=== PATIENT | male | born 1965 | race African-American/Black ===

== ENCOUNTER 2019-08-01 12:01 | Inpatient (IN) | payer OTHER ==
[~2019-08-01] VITALS: Ht 180.3 cm; Wt 137.6 kg
--- NOTE | 2019-08-01 12:20 | PHYS DOC ---
Adult General Chief Complaint Chief Complaint: ABDOMINAL PAIN HPI HPI Patient is a 53 year old Male who presents with nose last night he has increase abdominal fullness to the point where he is having shortness of breath that he states he notes last night. He states his last bowel movement was an hour ago and it was normal for him. He states that he's had ascites before and had to have his abdomen draining. He states he has a history of liver disease and hypertension. States he normally goes to the [facility]. Patient states he also has bilateral lower leg swelling that is new when he noticed this yesterday. He states his overall discomfort as a 10 out of 10 but no pain. He states that he has a left-sided chest pain that is sharp and it comes and goes but none at this time. Patient denies nausea, vomiting, abdominal pain, diarrhea, constipation, alcoholism, drug use, dizziness, headache, visual changes, weakness, numbness or tingling. Review of Systems Review of Systems Respiratory: Denies cough. +shortness of breath [] Cardiovascular: Left chest intermittent GI: abdominal swelling, denies nausea, vomiting, bloody stools or diarrhea [] : Denies dysuria or hematuria [] Musculoskeletal: Pedal edema. Denies back pain or joint pain [] All other systems were reviewed and found to be within normal limits, except as documented in this note. Current Medications Current Medications Current Medications Medications (Trade) Dose Ordered Sig/Obed Start Time Stop Time Status Last Admin Dose Admin Info (CONTRAST GIVEN -- Rx MONITORING) 1 each PRN DAILY PRN 08/01/19 13:30 08/03/19 13:29 Iohexol (Omnipaque 300 Mg/ml) 75 ml 1X ONCE 08/01/19 13:15 08/01/19 13:16 DC 08/01/19 13:27 75 ML Ondansetron HCl (Zofran) 4 mg 1X ONCE 08/01/19 13:30 08/01/19 13:31 DC 08/01/19 14:01 4 MG Potassium Chloride (Klor-Con) 40 meq 1X ONCE 08/01/19 13:30 08/01/19 13:31 DC 08/01/19 14:01 40 MEQ Allergies Allergies Allergies Coded Allergies Type Severity Reaction Last Updated Verified No Known Drug Allergies 08/01/19 No Physical Exam Physical Exam Constitutional: Well developed, well nourished, no acute distress, non-toxic appearance. [] HENT: Normocephalic, atraumatic, bilateral external ears normal, oropharynx moist, no oral exudates, nose normal. [] Eyes: PERRLA, EOMI, conjunctiva normal, no discharge. [] Neck: Normal range of motion, no tenderness, supple, no stridor. [] Cardiovascular:Heart rate, Tachy regular rhythm, no murmur [] Lungs & Thorax: Bilateral upper breath sounds clear and lower diminished to auscultation [] Abdomen: Bowel sounds normal, large, rounded and tight, no tenderness, no masses, no pulsatile masses. [] Skin: Warm, dry, no erythema, no rash. [] Back: No tenderness, no CVA tenderness. [] Extremities: No tenderness, no cyanosis, no clubbing, ROM intact, Bilateral pedal 2+ non pitting edema. [] Neurologic: Alert and oriented X 3, normal motor function, normal sensory function, no focal deficits noted. [] Psychologic: Affect normal, judgement normal, mood normal. [] Current Patient Data Vital Signs Vital Signs Date Time Temp Pulse Resp B/P (MAP) Pulse Ox O2 Delivery O2 Flow Rate FiO2 08/01/19 12:01 98.1 120 24 156/64 (94) 97 Room Air 98.1 Lab Values Laboratory Tests Test 08/01/19 11:55 08/01/19 12:04 Urine Collection Type Unknown Urine Color Yellow Urine Clarity Clear Urine pH 7.0 Urine Specific [place] 1.010 Urine Protein Negative mg/dL (NEG-TRACE) Urine Glucose (UA) Negative mg/dL (NEG) Urine Ketones (Stick) Negative mg/dL (NEG) Urine Blood Negative (NEG) Urine Nitrite Negative (NEG) Urine Bilirubin Negative (NEG) Urine Urobilinogen Dipstick 1.0 mg/dL (0.2 mg/dL) Urine Leukocyte Esterase Negative (NEG) Urine RBC 3-5 /HPF (0-2) Urine WBC 0 /HPF (0-4) Urine Squamous Epithelial Cells Mod /LPF Urine Bacteria 0 /HPF (0-FEW) Urine Opiates Screen Neg (NEG) Urine Methadone Screen Neg (NEG) Urine Barbiturates Neg (NEG) Urine Phencyclidine Screen Neg (NEG) Urine Amphetamine/Methamphetamine Neg (NEG) Urine Benzodiazepines Screen Neg (NEG) Urine Cocaine Screen Neg (NEG) Urine Cannabinoids Screen Neg (NEG) Urine Ethyl Alcohol Neg (NEG) White Blood Count 7.1 x10^3/uL (4.0-11.0) Red Blood Count 2.58 x10^6/uL (4.30-5.70) L Hemoglobin 8.4 g/dL (13.0-17.5) L Hematocrit 25.0 % (39.0-53.0) L Mean Corpuscular Volume 97 fL (79-100) Mean Corpuscular Hemoglobin 33 pg (25-35) Mean Corpuscular Hemoglobin Concent 34 g/dL (31-37) Red Cell Distribution Width 17.3 % (11.5-14.5) H Platelet Count 109 x10^3/uL (140-400) L Neutrophils (%) (Auto) 60 % (31-73) Lymphocytes (%) (Auto) 18 % (24-48) L Monocytes (%) (Auto) 18 % (0-9) H Eosinophils (%) (Auto) 2 % (0-3) Basophils (%) (Auto) 1 % (0-3) Neutrophils # (Auto) 4.3 x10^3/uL (1.8-7.7) Lymphocytes # (Auto) 1.3 x10^3/uL (1.0-4.8) Monocytes # (Auto) 1.3 x10^3/uL (0.0-1.1) H Eosinophils # (Auto) 0.2 x10^3/uL (0.0-0.7) Basophils # (Auto) 0.1 x10^3/uL (0.0-0.2) Platelet Estimate Pending Prothrombin Time 23.4 SEC (11.7-14.0) H Prothrombin Time INR 2.1 (0.8-1.1) H Sodium Level 133 mmol/L (136-145) L Potassium Level 3.0 mmol/L (3.5-5.1) L Chloride Level 97 mmol/L (98-107) L Carbon Dioxide Level 28 mmol/L (21-32) Anion Gap 8 (6-14) Blood Urea Nitrogen 7 mg/dL (8-26) L Creatinine 1.4 mg/dL (0.7-1.3) H Estimated GFR (Cockcroft-Gault) 53.0 BUN/Creatinine Ratio 5 (6-20) L Glucose Level 116 mg/dL (70-99) H Calcium Level 7.9 mg/dL (8.5-10.1) L Total Bilirubin 2.0 mg/dL (0.2-1.0) H Aspartate Amino Transferase (AST) 117 U/L (15-37) H Alanine Aminotransferase (ALT) 44 U/L (16-63) Alkaline Phosphatase 244 U/L (46-116) H Troponin I Quantitative < 0.017 ng/mL (0.000-0.055) ZY-[id number]-Type Natriuretic Peptide 95 pg/mL (0-124) Total Protein 8.1 g/dL (6.4-8.2) Albumin 2.3 g/dL (3.4-5.0) L Albumin/Globulin Ratio 0.4 (1.0-1.7) L Lipase 202 U/L (73-393) Ethyl Alcohol Level < 10 mg/dL (0-10) Laboratory Tests 08/01/19 12:04 Laboratory Tests 08/01/19 12:04 EKG EKG Sinus Tachy and no STEMI[] Interpretation Time: [address] Villaseñor Radiology/Procedures Radiology/Procedures [] Impressions: [address] [id number] IMAGING REPORT Signed PATIENT: KERRY GILMORE ACCOUNT: [id number] : 1965 LOCATION: ER AGE: 53 SEX: M EXAM STATUS: PRE ER ORD. PHYSICIAN: ASHA MOTLEY APRN REASON: soa PROCEDURE: PORTABLE CHEST 1V EXAM: Chest, single view. HISTORY: Shortness of air. COMPARISON: None. FINDINGS: A frontal view of the chest is obtained. There is no infiltrate, pleural effusion or pneumothorax. The heart is normal in size. IMPRESSION: No acute pulmonary finding. Electronically signed by: Gaby Chacko MD (08/01/2019 12:50 PM) [place] [id number] DICTATED and SIGNED BY: GABY CHACKO MD DATE: 08/01/[address] [id number] IMAGING REPORT Signed PATIENT: KERRY GILMORE ACCOUNT: [id number] : 1965 LOCATION: ER AGE: 53 SEX: M EXAM STATUS: PRE ER ORD. PHYSICIAN: ASHA MOTLEY APRN REASON: abdominal swelling, hx liver disease and ascites PROCEDURE: CT ABD PELV W/ IV CONTRST ONLY CT abdomen pelvis with contrast dated 08/01/2019. No comparison available. CLINICAL INDICATION: Abdominal swelling. History of liver disease. TECHNIQUE: Contiguous axial imaging the abdomen and pelvis performed after the administration of 60 cc Omnipaque 300. One or more of the following individualized dose reduction techniques were utilized for this examination: 1. Automated exposure control 2. Adjustment of the mA and/or kV according to patient size 3. Use of iterative reconstruction technique. FINDINGS: Limited images of lung bases are clear. Heart size is upper limits of normal. No pleural or pericardial effusion. Liver is small and nodular in contour with hypertrophy of the left lobe and caudate. There is a tiny hypodensity in the right lobe centrally measuring about 5 mm. Biliary tree is normal in caliber. The gallbladder is surgically absent. Spleen is normal in size. There is a small amount of ascites. Pancreas, adrenal glands and kidneys are unremarkable. No hydronephrosis. Partially opacified GI tract is normal in caliber and contour. There is some mild wall thickening of the right colon. Appendix normal in caliber. No lymphadenopathy. Abdominal aorta normal in caliber. Images of pelvis show nondistended urinary bladder. Prostate gland normal in size. Small amount of free pelvic fluid. No pelvic lymphadenopathy. There are small umbilical and supraumbilical ventral hernias containing ascitic fluid. Bone windows show no acute findings. Multilevel spondylosis. IMPRESSION: 1. No acute abnormality of abdomen or pelvis. Normal appendix. 2. Findings consistent with cirrhosis. There is a small amount of ascites. 3. Tiny hypodensity in the right lobe liver measuring about 5 mm, nonspecific. Correlate with alpha-fetoprotein values. Follow-up biphasic CT or MRI in 6 months to ensure stability. 4. Small ventral hernias containing ascitic fluid. Electronically signed by: Ayush Mann MD (08/01/2019 1:48 PM) [facility] DICTATED and SIGNED BY: AYUSH MANN MD DATE: 08/01/19 1348 Course & Med Decision Making Course & Med Decision Making Lungs are clear to station upper lobes but diminished in lower lobes. Abdomen is large, rounded in tight. No tenderness with palpation. EKG shows sinus tachycardia at 111 and no STEMI. Has bilateral pedal edema and 2+ nonpitting. Speaks in full clear sentences but does sound breathless. Patient whispers when he speaks. PERRLA. Follows all commands. Skin pink warm and dry. CT ABD PELV shows IMPRESSION: 1. No acute abnormality of abdomen or pelvis. Normal appendix. 2. Findings consistent with cirrhosis. There is a small amount of ascites. 3. Tiny hypodensity in the right lobe liver measuring about 5 mm, nonspecific. Correlate with alpha-fetoprotein values. Follow-up biphasic CT or MRI in 6 months to ensure stability. 4. Small ventral hernias containing ascitic fluid. Blood work grossly abnormal. Hypocalcemia and Hypokalemia. I ordered PO Potassium. I have spoken to Dr Garcia, she is aware of lab findings and the Patient admitted to hospitalist Dr. Garcia. Carson Disclaimer Carson Disclaimer This electronic medical record was generated, in whole or in part, using a voice recognition dictation system. The HEART Score for CP Pts HEART Score for Chest Pain: HEART Score for Chest Pain Response (Comments) Value History Slighlty/Non-Suspicious 0 ECG Normal 0 Age >45 - < 65 1 Risk Factors 1 or 2 Risk Factors 1 Troponin < Normal Limit 0 Total 2 Risk Factors: Risk Factors: DM, Current or recent (<one month) smoker, HTN, HLP, family history of CAD, obesity. Risk Scores: Score 0 - 3: 2.5% MACE over next 6 weeks - Discharge Home Score 4 - 6: 20.3% MACE over next 6 weeks - Admit for Clinical Observation Score 7 - 10: 72.7% MACE over next 6 weeks - Early Invasive Strategies Departure Departure Impression: Primary Impression: Ascites Additional Impressions: Shortness of breath Chest pain Disposition: ADMITTED INPATIENT Admitting Physician: HOLGER Condition: STABLE Problem Qualifiers Primary Impression: Ascites Ascites type: other type Qualified Codes: R18.8 - Other ascites Additional Impressions: Chest pain Chest pain type: other chest pain Qualified Codes: R07.89 - Other chest pain ASHA MOTLEY FILM COMPOSER Aug 01, 2019 12:20
[2019-08-01 12:29] LABS: BASO # 0.1 x10^3/uL (0.0-0.2); BASO % 1 % (0-3); EOS # 0.2 x10^3/uL (0.0-0.7); EOS % 2 % (0-3); HEMOGLOBIN 8.4 g/dL (13.0-17.5); LYMPH # 1.3 x10^3/uL (1.0-4.8); LYMPH % 18 % (24-48); MEAN CORPUSCULAR HEMOGLOBIN 33 pg (25-35); MEAN CORPUSCULAR HGB CONC 34 g/dL (31-37); MEAN CORPUSCULAR VOLUME 97 fL (79-100); MONO # 1.3 x10^3/uL (0.0-1.1); MONO % 18 % (0-9); NEUT # 4.3 x10^3/uL (1.8-7.7); NEUT % 60 % (31-73); PLATELET COUNT 109 x10^3/uL (140-400); RED BLOOD COUNT 2.58 x10^6/uL (4.30-5.70); RED CELL DISTRIBUTION WIDTH 17.3 % (11.5-14.5); WHITE BLOOD COUNT 7.1 x10^3/uL (4.0-11.0)
[2019-08-01 12:47] LABS: CALCIUM 7.9 mg/dL (8.5-10.1); CREATININE 1.4 mg/dL (0.7-1.3)
[2019-08-01 12:48] LABS: BILIRUBIN,URINE NEGATIVE (NEG); CLARITY,URINE CLEAR; COLOR,URINE YELLOW; NITRITE,URINE NEGATIVE (NEG); PROTEIN,URINE NEGATIVE (NEG-TRACE)
--- NOTE | 2019-08-01 12:53 | RAD ---
EXAM: Chest, single view. HISTORY: Shortness of air. COMPARISON: None. FINDINGS: A frontal view of the chest is obtained. There is no infiltrate, pleural effusion or pneumothorax. The heart is normal in size. IMPRESSION: No acute pulmonary finding. Electronically signed by: Gaby Sharpe MD (08/01/2019 12:50 PM) [facility]
[2019-08-01 12:54] LABS: ALBUMIN 2.3 g/dL (3.4-5.0); ALBUMIN/GLOBULIN RATIO 0.4 (1.0-1.7); TOTAL PROTEIN 8.1 g/dL (6.4-8.2)
[2019-08-01 13:00] LABS: AMPHETAMINE/METHAMPHETAMINE NEG (NEG); BARBITURATES NEG (NEG); BENZODIAZEPINES NEG (NEG); CANNABINOIDS NEG (NEG); COCAINE NEG (NEG); METHADONE NEG (NEG); OPIATES NEG (NEG); PHENCYCLIDINE NEG (NEG)
[2019-08-01 13:10] LABS: SQUAMOUS EPITHELIAL CELL,UR MOD /LPF
[2019-08-01 13:12] LABS: BACTERIA,URINE 0 /HPF (0-FEW); WBC,URINE 0 /HPF (0-4)
[2019-08-01 13:12] LABS: PROTHROMBIN TIME PATIENT 23.4 SEC (11.7-14.0)
[2019-08-01] MEDS ORDERED: IOHEXOL 300 MG/ML 100ML VIAL. IV ONE (13:15)
[2019-08-01] MEDS ORDERED: ONDANSETRON PF 4 MG/2 ML VIAL. IVP ONE (13:30)
[2019-08-01] MEDS ORDERED: POTASSIUM CHLORIDE 20 MEQ TABLET.ER. PO ONE (13:30)
[2019-08-01] MEDS ORDERED: CONTRAST GIVEN. MC PRN (13:30)
--- NOTE | 2019-08-01 13:51 | RAD ---
CT abdomen pelvis with contrast dated 08/01/2019. No comparison available. CLINICAL INDICATION: Abdominal swelling. History of liver disease. TECHNIQUE: Contiguous axial imaging the abdomen and pelvis performed after the administration of 60 cc Omnipaque 300. One or more of the following individualized dose reduction techniques were utilized for this examination: 1. Automated exposure control 2. Adjustment of the mA and/or kV according to patient size 3. Use of iterative reconstruction technique. FINDINGS: Limited images of lung bases are clear. Heart size is upper limits of normal. No pleural or pericardial effusion. Liver is small and nodular in contour with hypertrophy of the left lobe and caudate. There is a tiny hypodensity in the right lobe centrally measuring about 5 mm. Biliary tree is normal in caliber. The gallbladder is surgically absent. Spleen is normal in size. There is a small amount of ascites. Pancreas, adrenal glands and kidneys are unremarkable. No hydronephrosis. Partially opacified GI tract is normal in caliber and contour. There is some mild wall thickening of the right colon. Appendix normal in caliber. No lymphadenopathy. Abdominal aorta normal in caliber. Images of pelvis show nondistended urinary bladder. Prostate gland normal in size. Small amount of free pelvic fluid. No pelvic lymphadenopathy. There are small umbilical and supraumbilical ventral hernias containing ascitic fluid. Bone windows show no acute findings. Multilevel spondylosis. IMPRESSION: 1. No acute abnormality of abdomen or pelvis. Normal appendix. 2. Findings consistent with cirrhosis. There is a small amount of ascites. 3. Tiny hypodensity in the right lobe liver measuring about 5 mm, nonspecific. Correlate with alpha-fetoprotein values. Follow-up biphasic CT or MRI in 6 months to ensure stability. 4. Small ventral hernias containing ascitic fluid. Electronically signed by: Ayush Mann MD (08/01/2019 1:48 PM) [id number]
[2019-08-01] MEDS ORDERED: fentaNYL PF VIAL 100 MCG/2 ML VIAL IV PRN (14:15)
[2019-08-01] MEDS ORDERED: ONDANSETRON PF 4 MG/2 ML VIAL. IV PRN (14:15)
--- NOTE | 2019-08-01 15:11 | PDOC1 ---
History and Physical Date of Admission Date of Admission DATE: 08/01/19 TIME: 15:03 Identification/Chief Complaint Chief Complaint cant breathe Source Source: Caregiver, Chart review, Patient History of Present Illness History of Present Illness 53 obese AA male, he has hx cirrhosis,a nd quit drinking since the dx, needed a paracentesis last yr, HE has SOA, cant sit up bec has SOA, chets pains too RT to left side, HIS LFTS are moderately elevated with elev TB and alk phosphatase, HSi CXR is normal ,BP high side bec of restlessness, HE is sinus tacycardic. K low, getting 40 PO x 1, CLaims on lasix, aldactone at home but doesnt know the dose or frequency, Na 133, platelets low, 100s, creat 1,4\HE does not smoke CT:IMPRESSION: 1. No acute abnormality of abdomen or pelvis. Normal appendix. 2. Findings consistent with cirrhosis. There is a small amount of ascites. 3. Tiny hypodensity in the right lobe liver measuring about 5 mm, nonspecific. Correlate with alpha-fetoprotein values. Follow-up biphasic CT or MRI in 6 months to ensure stability. 4. Small ventral hernias containing ascitic fluid. Past Medical History Cardiovascular: HTN Heme/Onc: Anemia NOS, Other (liver cirrhosis) Past Surgical History Past Surgical History: Other (paracentesis a yr ago) Social History Smoke: No ALCOHOL: other (quit since the dx of cirrhosis) Drugs: None Current Problem List Problem List Problems Medical Problems: (1) Ascites Status: Acute (2) Chest pain Status: Acute (3) Shortness of breath Status: Acute Current Medications Current Medications Current Medications Iohexol (Omnipaque 300 Mg/ml) 75 ml 1X ONCE IV Last administered on 08/01/19at 13:27; Start 08/01/19 at 13:15; Stop 08/01/19 at 13:16; Status DC Info (CONTRAST GIVEN -- Rx MONITORING) 1 each PRN DAILY PRN MC SEE COMMENTS; Start 08/01/19 at 13:30; Stop 08/03/19 at 13:29 Potassium Chloride (Klor-Con) 40 meq 1X ONCE PO Last administered on 08/01/19at 14:01; Start 08/01/19 at 13:30; Stop 08/01/19 at 13:31; Status DC Ondansetron HCl (Zofran) 4 mg 1X ONCE IVP Last administered on 08/01/19at 14:01; Start 08/01/19 at 13:30; Stop 08/01/19 at 13:31; Status DC Ondansetron HCl (Zofran) 4 mg PRN Q8HRS PRN IV NAUSEA/VOMITING; Start 08/01/19 at 14:15; Stop 08/02/19 at 14:14 Fentanyl Citrate (Fentanyl 2ml Vial) 50 mcg PRN Q1HR PRN IV PAIN; Start 08/01/19 at 14:15; Stop 08/02/19 at 14:14 Allergies Allergies: Coded Allergies: No Known Drug Allergies (Unverified , 08/01/19) ROS Review of System as per hPI< soa, distended, cant breathe Physical Exam General: Alert, Oriented X3, Cooperative, mild distress, Other (cant get comfortable) HEENT: Atraumatic, PERRLA Lungs: Normal air movement, Other (sinus tachy, equal air entry, no wheezing or crackles) Heart: S1S2, no thrills, no rubs, no gallops, no jug vein distention Abdomen: Soft, Other (distended tympnaitic on all esle, but dull to RUQ) Extremities: No clubbing, No cyanosis, No edema, Normal pulses, No tenderness/swelling Skin: No rashes, No breakdown, No significant lesion Neuro: Normal gait, Normal speech, Strength at 5/5 X4 ext, Normal tone, Sensation intact, Cranial nerves 3-12 NL, Reflexes 2+ Vitals Vitals Vital Signs Date Time Temp Pulse Resp B/P (MAP) Pulse Ox O2 Delivery O2 Flow Rate FiO2 08/01/19 14:10 110 148/86 (106) 08/01/19 13:00 95 Room Air 08/01/19 12:30 23 08/01/19 12:01 98.1 98.1 Labs Labs Laboratory Tests Test 08/01/19 11:55 08/01/19 12:04 Urine Collection Type Unknown Urine Color Yellow Urine Clarity Clear Urine pH 7.0 Urine Specific [place] 1.010 Urine Protein Negative mg/dL (NEG-TRACE) Urine Glucose (UA) Negative mg/dL (NEG) Urine Ketones (Stick) Negative mg/dL (NEG) Urine Blood Negative (NEG) Urine Nitrite Negative (NEG) Urine Bilirubin Negative (NEG) Urine Urobilinogen Dipstick 1.0 mg/dL (0.2 mg/dL) Urine Leukocyte Esterase Negative (NEG) Urine RBC 3-5 /HPF (0-2) Urine WBC 0 /HPF (0-4) Urine Squamous Epithelial Cells Mod /LPF Urine Bacteria 0 /HPF (0-FEW) Urine Opiates Screen Neg (NEG) Urine Methadone Screen Neg (NEG) Urine Barbiturates Neg (NEG) Urine Phencyclidine Screen Neg (NEG) Urine Amphetamine/Methamphetamine Neg (NEG) Urine Benzodiazepines Screen Neg (NEG) Urine Cocaine Screen Neg (NEG) Urine Cannabinoids Screen Neg (NEG) Urine Ethyl Alcohol Neg (NEG) White Blood Count 7.1 x10^3/uL (4.0-11.0) Red Blood Count 2.58 x10^6/uL (4.30-5.70) Hemoglobin 8.4 g/dL (13.0-17.5) Hematocrit 25.0 % (39.0-53.0) Mean Corpuscular Volume 97 fL (79-100) Mean Corpuscular Hemoglobin 33 pg (25-35) Mean Corpuscular Hemoglobin Concent 34 g/dL (31-37) Red Cell Distribution Width 17.3 % (11.5-14.5) Platelet Count 109 x10^3/uL (140-400) Neutrophils (%) (Auto) 60 % (31-73) Lymphocytes (%) (Auto) 18 % (24-48) Monocytes (%) (Auto) 18 % (0-9) Eosinophils (%) (Auto) 2 % (0-3) Basophils (%) (Auto) 1 % (0-3) Neutrophils # (Auto) 4.3 x10^3/uL (1.8-7.7) Lymphocytes # (Auto) 1.3 x10^3/uL (1.0-4.8) Monocytes # (Auto) 1.3 x10^3/uL (0.0-1.1) Eosinophils # (Auto) 0.2 x10^3/uL (0.0-0.7) Basophils # (Auto) 0.1 x10^3/uL (0.0-0.2) Prothrombin Time 23.4 SEC (11.7-14.0) Prothromb Time International Ratio 2.1 (0.8-1.1) Sodium Level 133 mmol/L (136-145) Potassium Level 3.0 mmol/L (3.5-5.1) Chloride Level 97 mmol/L (98-107) Carbon Dioxide Level 28 mmol/L (21-32) Anion Gap 8 (6-14) Blood Urea Nitrogen 7 mg/dL (8-26) Creatinine 1.4 mg/dL (0.7-1.3) Estimated GFR (Cockcroft-Gault) 53.0 BUN/Creatinine Ratio 5 (6-20) Glucose Level 116 mg/dL (70-99) Calcium Level 7.9 mg/dL (8.5-10.1) Total Bilirubin 2.0 mg/dL (0.2-1.0) Aspartate Amino Transf (AST/SGOT) 117 U/L (15-37) Alanine Aminotransferase (ALT/SGPT) 44 U/L (16-63) Alkaline Phosphatase 244 U/L (46-116) Troponin I Quantitative < 0.017 ng/mL (0.000-0.055) [id number]-[id number]-B-Type Natriuretic Peptide 95 pg/mL (0-124) Total Protein 8.1 g/dL (6.4-8.2) Albumin 2.3 g/dL (3.4-5.0) Albumin/Globulin Ratio 0.4 (1.0-1.7) Lipase 202 U/L (73-393) Ethyl Alcohol Level < 10 mg/dL (0-10) Laboratory Tests Test 08/01/19 11:55 08/01/19 12:04 Urine Collection Type Unknown Urine Color Yellow Urine Clarity Clear Urine pH 7.0 Urine Specific [place] 1.010 Urine Protein Negative mg/dL (NEG-TRACE) Urine Glucose (UA) Negative mg/dL (NEG) Urine Ketones (Stick) Negative mg/dL (NEG) Urine Blood Negative (NEG) Urine Nitrite Negative (NEG) Urine Bilirubin Negative (NEG) Urine Urobilinogen Dipstick 1.0 mg/dL (0.2 mg/dL) Urine Leukocyte Esterase Negative (NEG) Urine RBC 3-5 /HPF (0-2) Urine WBC 0 /HPF (0-4) Urine Squamous Epithelial Cells Mod /LPF Urine Bacteria 0 /HPF (0-FEW) Urine Opiates Screen Neg (NEG) Urine Methadone Screen Neg (NEG) Urine Barbiturates Neg (NEG) Urine Phencyclidine Screen Neg (NEG) Urine Amphetamine/Methamphetamine Neg (NEG) Urine Benzodiazepines Screen Neg (NEG) Urine Cocaine Screen Neg (NEG) Urine Cannabinoids Screen Neg (NEG) Urine Ethyl Alcohol Neg (NEG) White Blood Count 7.1 x10^3/uL (4.0-11.0) Red Blood Count 2.58 x10^6/uL (4.30-5.70) Hemoglobin 8.4 g/dL (13.0-17.5) Hematocrit 25.0 % (39.0-53.0) Mean Corpuscular Volume 97 fL (79-100) Mean Corpuscular Hemoglobin 33 pg (25-35) Mean Corpuscular Hemoglobin Concent 34 g/dL (31-37) Red Cell Distribution Width 17.3 % (11.5-14.5) Platelet Count 109 x10^3/uL (140-400) Neutrophils (%) (Auto) 60 % (31-73) Lymphocytes (%) (Auto) 18 % (24-48) Monocytes (%) (Auto) 18 % (0-9) Eosinophils (%) (Auto) 2 % (0-3) Basophils (%) (Auto) 1 % (0-3) Neutrophils # (Auto) 4.3 x10^3/uL (1.8-7.7) Lymphocytes # (Auto) 1.3 x10^3/uL (1.0-4.8) Monocytes # (Auto) 1.3 x10^3/uL (0.0-1.1) Eosinophils # (Auto) 0.2 x10^3/uL (0.0-0.7) Basophils # (Auto) 0.1 x10^3/uL (0.0-0.2) Prothrombin Time 23.4 SEC (11.7-14.0) Prothromb Time International Ratio 2.1 (0.8-1.1) Sodium Level 133 mmol/L (136-145) Potassium Level 3.0 mmol/L (3.5-5.1) Chloride Level 97 mmol/L (98-107) Carbon Dioxide Level 28 mmol/L (21-32) Anion Gap 8 (6-14) Blood Urea Nitrogen 7 mg/dL (8-26) Creatinine 1.4 mg/dL (0.7-1.3) Estimated GFR (Cockcroft-Gault) 53.0 BUN/Creatinine Ratio 5 (6-20) Glucose Level 116 mg/dL (70-99) Calcium Level 7.9 mg/dL (8.5-10.1) Total Bilirubin 2.0 mg/dL (0.2-1.0) Aspartate Amino Transf (AST/SGOT) 117 U/L (15-37) Alanine Aminotransferase (ALT/SGPT) 44 U/L (16-63) Alkaline Phosphatase 244 U/L (46-116) Troponin I Quantitative < 0.017 ng/mL (0.000-0.055) ZP-[id number]-U-Type Natriuretic Peptide 95 pg/mL (0-124) Total Protein 8.1 g/dL (6.4-8.2) Albumin 2.3 g/dL (3.4-5.0) Albumin/Globulin Ratio 0.4 (1.0-1.7) Lipase 202 U/L (73-393) Ethyl Alcohol Level < 10 mg/dL (0-10) VTE Prophylaxis Ordered VTE Prophylaxis Devices: Yes VTE Pharmacological Prophylaxi: Yes Assessment/Plan Assessment/Plan PLatypnea Right sided to left sided CHEST pain Abd distention with minimal ascites on CT TRansaminitis with elev LFTs and TB LIver cirrhosis, correlate with AFP levels Obesity HX parcentesis 1 yr ago - [facility] HYPOKALEMIA< critical RAMESH VMN - creat 1.,4 Thrombocytopenia in a cirrhotic - monitor Accelerated hTN - add prn , home meds pending Hyponatremia , mild (133) in a cirrhotic PLAn: 2 MN, CVC flooe [facility] from [facility] cards and GI consult I did NOT give lasix, no leg edema, minimal ascites OK to eat for now Awaiting home meds (mentions lasix and aldactone) AFP levels FULL CODE seen at ER Other supprotve meds ordered K replaced, recheck tmr, check mag levels MARYANNE BARKLEY MD Aug 01, 2019 15:11
[2019-08-01] MEDS ORDERED: CALCIUM CARBONATE 500 MG TAB.CHEW PO PRN (15:15)
[2019-08-01] MEDS ORDERED: ALBUTEROL SULFATE 2.5 MG/3 ML NEBU. NEB PRN (15:15)
[2019-08-01] MEDS ORDERED: cloNIDine HCL 0.1 MG TABLET PO PRN (15:15)
[2019-08-01 15:32] LABS: % BANDS 1 % (0-9); % BASOS 2 % (0-3); % EOS 7 % (0-5); % LYMPHS 13 % (24-48); % MONOS 20 % (0-10); % SEGS 57 % (35-66)
[2019-08-01 15:37] LABS: ANISOCYTOSIS SLIGHT; PLT ESTIMATE DECREASED (ADEQUATE); POIKILOCYTOSIS SLIGHT; POLYCHROMASIA SLIGHT
[2019-08-01 15:38] LABS: HELMET CELLS OCC; OVALOCYTES FEW; TARGET CELLS MOD
[2019-08-01 16:15] VITALS: BP 166/86
--- NOTE | 2019-08-01 16:15 | NUR ---
The patient, KERRY GILMORE, 53 y/o, M admitted by MARYANNE BARKLEY MD, was given written information regarding hospital policies, unit procedures and contact persons. Valuables were checked and left with patient. Pt admitted to room 262 from ED. Arrived to unit via wheelchair. Pt complaining of 10/10 pain in abdomen and shortness of breath due to tightness in abdomen. VSS. Tele monitor applied. Pt in sinus tach with rate in the 100s. Call light within reach. Will continue to monitor.
[2019-08-01] MEDS: IPRATRPIUM/ALBUTEROL 0.5/2.5MG 3 ML NEBU. NEB SCH ×2 (16:31→20:47)
[2019-08-01] MEDS ORDERED: MAGNESIUM SULFATE 2GM 50 ML IV ONE (17:45)
[2019-08-01 19:00] VITALS: BP 154/67
[2019-08-01 23:03] VITALS: BP 136/63
[2019-08-02] MEDS ORDERED: GABA600T7 PO (01:46)
[2019-08-02] MEDS ORDERED: SPIR100T4 PO (01:46)
[2019-08-02] MEDS ORDERED: ASPI81TA59 PO (01:46)
[2019-08-02] MEDS ORDERED: FOLI0.8C PO (01:46)
[2019-08-02] MEDS ORDERED: FURO40TA4 PO (01:46)
[2019-08-02 03:05] VITALS: BP 109/53
[2019-08-02 05:20] LABS: CALCIUM 7.3 mg/dL (8.5-10.1); CREATININE 1.4 mg/dL (0.7-1.3); GFR 64.1
[2019-08-02 05:24] LABS: POTASSIUM 2.8 mmol/L (3.5-5.1)
[2019-08-02] MEDS ORDERED: POTASSIUM CHLORIDE 10MEQ 100 ML IV SCH ×2 (06:00→10:00)
[2019-08-02 07:00] VITALS: BP 128/58
[2019-08-02] MEDS: IPRATRPIUM/ALBUTEROL 0.5/2.5MG 3 ML NEBU. NEB SCH ×4 (07:57→19:45)
[2019-08-02] MEDS ORDERED: FOLIC ACID 5 MG PO SCH (09:00)
[2019-08-02] MEDS: SPIRONOLACTONE 25 MG TABLET PO SCH (09:43)
[2019-08-02] MEDS: GABAPENTIN 300 MG CAPSULE. PO SCH ×3 (09:43→21:20)
[2019-08-02] MEDS: FOLIC ACID 1 MG TABLET. PO SCH (09:43)
[2019-08-02] MEDS: ASPIRIN CHEWABLE 81 MG TABLET. PO SCH (09:44)
[2019-08-02] MEDS: POTASSIUM CHLORIDE 20 MEQ TABLET.ER. PO SCH ×2 (09:44→13:04)
[2019-08-02] MEDS: FUROSEMIDE 40 MG TABLET. PO SCH (09:44)
[2019-08-02 11:00] VITALS: BP 117/58
[2019-08-02] MEDS: POLYVINYL ALCOHOL 1.4% OPHTH SOLUTION 15ML BOTTLE. OU PRN ×2 (13:50→16:14)
[2019-08-02] MEDS: MORPHINE SULFATE 2 MG/ML VIAL. IV PRN ×3 (13:51→18:54)
--- NOTE | 2019-08-02 14:07 | PDOC2 ---
CONSULT Date of Consult Date of Consult DATE: 08/02/19 TIME: 14:00 Reason for Consult Reason for Consult: Shortness of breath, chest pain Referring Physician Referring Physician: Dr. Garcia Identification/Chief Complaint Chief Complaint Abdominal pain Source Source: Chart review, Patient History of Present Illness Reason for Visit: The patient is a 53-year-old male who presented to the emergency room yesterday with increased abdominal fullness and abdominal pain. This was also associated with some shortness of breath. The patient also reported an episode of chest pain. The patient has a history of liver disease and has had paracentesis last year. His initial troponin was normal. His EKG showed no acute ischemic changes. Chest x-ray showed no acute changes. CT scan of the abdomen showed cirrhosis and a small amount of ascites. He is also been treated for accelerated hypertension and today is feeling better. He denies a history of coronary artery disease. Past Medical History Cardiovascular: HTN GI: Other (cirrhosis) Heme/Onc: Anemia NOS Past Surgical History Past Surgical History: Other (paracentesis a yr ago) Family History Family History: Hypertension Social History No ALCOHOL: other (discontinued.) Drugs: None Current Problem List Problem List Problems Medical Problems: (1) Ascites Status: Acute (2) Chest pain Status: Acute (3) Shortness of breath Status: Acute Current Medications Current Medications Current Medications Iohexol (Omnipaque 300 Mg/ml) 75 ml 1X ONCE IV Last administered on 08/01/19at 13:27; Start 08/01/19 at 13:15; Stop 08/01/19 at 13:16; Status DC Info (CONTRAST GIVEN -- Rx MONITORING) 1 each PRN DAILY PRN MC SEE COMMENTS; Start 08/01/19 at 13:30; Stop 08/03/19 at 13:29 Potassium Chloride (Klor-Con) 40 meq 1X ONCE PO Last administered on 08/01/19at 14:01; Start 08/01/19 at 13:30; Stop 08/02/19 at 08:54; Status DC Ondansetron HCl (Zofran) 4 mg 1X ONCE IVP Last administered on 08/01/19at 14:01; Start 08/01/19 at 13:30; Stop 08/01/19 at 13:31; Status DC Ondansetron HCl (Zofran) 4 mg PRN Q8HRS PRN IV NAUSEA/VOMITING; Start 08/01/19 at 14:15; Stop 08/02/19 at 14:14 Fentanyl Citrate (Fentanyl 2ml Vial) 50 mcg PRN Q1HR PRN IV PAIN; Start 08/01/19 at 14:15; Stop 08/02/19 at 14:14 Albuterol Sulfate (Ventolin Neb Soln) 2.5 mg PRN Q4HRS PRN NEB SHORTNESS OF BREATH; Start 08/01/19 at 15:15 Albuterol/ Ipratropium (Duoneb) 3 ml RTQID NEB Last administered on 08/02/19at 07:57; Start 08/01/19 at 16:00 Clonidine HCl (Catapres) 0.1 mg PRN Q1HR PRN PO HYPERTENSION; Start 08/01/19 at 15:15 Calcium Carbonate/ Glycine (Tums) 500 mg PRN AFTMEALHC PRN PO INDIGESTION; Start 08/01/19 at 15:15 Magnesium Sulfate 50 ml @ 25 mls/hr 1X ONCE IV Last administered on 08/01/19at 18:22; Start 08/01/19 at 17:45; Stop 08/01/19 at 19:44; Status DC Potassium Chloride/Water 100 ml @ 100 mls/hr Q1H IV Last administered on 08/02/19at 06:15; Start 08/02/19 at 06:00; Stop 08/02/19 at 08:54; Status DC Potassium Chloride/Water 100 ml @ 100 mls/hr Q1H IV ; Start 08/02/19 at 10:00; Stop 08/02/19 at 08:54; Status DC Aspirin (Children'S Aspirin) 81 mg DAILY PO Last administered on 08/02/19at 09:44; Start 08/02/19 at 09:00 Furosemide (Lasix) 40 mg DAILY PO Last administered on 08/02/19at 09:44; Start 08/02/19 at 09:00 Non-Formulary Medication (Folic Acid ) 5 mg DAILY PO ; Start 08/02/19 at 09:00; Stop 08/02/19 at 08:55; Status DC Gabapentin (Neurontin) 600 mg TID PO Last administered on 08/02/19at 13:03; Start 08/02/19 at 09:00 Spironolactone (Aldactone) 100 mg DAILY PO Last administered on 08/02/19at 0 9:43; Start 08/02/19 at 09:00 Potassium Chloride (Klor-Con) 40 meq Q2H PO Last administered on 08/02/19at 13:04; Start 08/02/19 at 08:00; Stop 08/02/19 at 12:01; Status DC Folic Acid (Folic Acid) 1 mg DAILY PO Last administered on 08/02/19at 09:43; Start 08/02/19 at 09:00 Artificial Tears (Artificial Tears) 1 drop PRN Q15MIN PRN OU DRY EYE Last administered on 08/02/19at 13:50; Start 08/02/19 at 13:15 Morphine Sulfate (Morphine Sulfate) 2 mg PRN Q2HR PRN IV MODERATE TO SEVERE PAIN Last administered on 08/02/19at 13:51; Start 08/02/19 at 13:15 Active Scripts Active Reported Gabapentin 600 Mg Tablet 600 Mg PO TID Children's Aspirin (Aspirin) 81 Mg Tab.chew 1 Tab PO DAILY 30 Days Folic Acid 0.8 Mg Capsule 5 Mg PO DAILY 30 Days Furosemide 40 Mg Tablet 1 Tab PO DAILY Spironolactone 100 Mg Tablet 1 Tab PO DAILY Allergies Allergies: Coded Allergies: No Known Drug Allergies (Unverified , 08/01/19) ROS General: YES: Fatigue Respiratory: YES: Shortness of breath, SOB with excertion Gastrointestinal: Yes Abdominal Pain Physical Exam General: mild distress HEENT: Atraumatic Lungs: Other (slightly decreased breath sounds in the bases) Heart: Regular rate Abdomen: Other (mild to moderate swelling) Vitals VITALS Vital Signs Date Time Temp Pulse Resp B/P (MAP) Pulse Ox O2 Delivery O2 Flow Rate FiO2 08/02/19 13:51 97 Room Air 08/02/19 11:00 98.5 113 24 117/58 (77) 98.5 Labs Labs Laboratory Tests Test 08/01/19 11:55 08/01/19 12:04 08/02/19 04:20 08/02/19 04:30 Urine Collection Type Unknown Urine Color Yellow Urine Clarity Clear Urine pH 7.0 Urine Specific [place] 1.010 Urine Protein Negative mg/dL (NEG-TRACE) Urine Glucose (UA) Negative mg/dL (NEG) Urine Ketones (Stick) Negative mg/dL (NEG) Urine Blood Negative (NEG) Urine Nitrite Negative (NEG) Urine Bilirubin Negative (NEG) Urine Urobilinogen Dipstick 1.0 mg/dL (0.2 mg/dL) Urine Leukocyte Esterase Negative (NEG) Urine RBC 3-5 /HPF (0-2) Urine WBC 0 /HPF (0-4) Urine Squamous Epithelial Cells Mod /LPF Urine Bacteria 0 /HPF (0-FEW) Urine Opiates Screen Neg (NEG) Urine Methadone Screen Neg (NEG) Urine Barbiturates Neg (NEG) Urine Phencyclidine Screen Neg (NEG) Urine Amphetamine/Methamphetamine Neg (NEG) Urine Benzodiazepines Screen Neg (NEG) Urine Cocaine Screen Neg (NEG) Urine Cannabinoids Screen Neg (NEG) Urine Ethyl Alcohol Neg (NEG) White Blood Count 7.1 x10^3/uL (4.0-11.0) Red Blood Count 2.58 x10^6/uL (4.30-5.70) Hemoglobin 8.4 g/dL (13.0-17.5) Hematocrit 25.0 % (39.0-53.0) Mean Corpuscular Volume 97 fL (79-100) Mean Corpuscular Hemoglobin 33 pg (25-35) Mean Corpuscular Hemoglobin Concent 34 g/dL (31-37) Red Cell Distribution Width 17.3 % (11.5-14.5) Platelet Count 109 x10^3/uL (140-400) Neutrophils (%) (Auto) 60 % (31-73) Lymphocytes (%) (Auto) 18 % (24-48) Monocytes (%) (Auto) 18 % (0-9) Eosinophils (%) (Auto) 2 % (0-3) Basophils (%) (Auto) 1 % (0-3) Neutrophils # (Auto) 4.3 x10^3/uL (1.8-7.7) Lymphocytes # (Auto) 1.3 x10^3/uL (1.0-4.8) Monocytes # (Auto) 1.3 x10^3/uL (0.0-1.1) Eosinophils # (Auto) 0.2 x10^3/uL (0.0-0.7) Basophils # (Auto) 0.1 x10^3/uL (0.0-0.2) Segmented Neutrophils % 57 % (35-66) Band Neutrophils % 1 % (0-9) Lymphocytes % 13 % (24-48) Monocytes % 20 % (0-10) Eosinophils % 7 % (0-5) Basophils % 2 % (0-3) Platelet Estimate Decreased (ADEQUATE) Large Platelets Present Polychromasia Slight Poikilocytosis Slight Basophilic Stippling Present Anisocytosis Slight Macrocytosis Slight Target Cells Mod Ovalocytes Few Helmet Cells Occ Prothrombin Time 23.4 SEC (11.7-14.0) Prothromb Time International Ratio 2.1 (0.8-1.1) Sodium Level 133 mmol/L (136-145) 133 mmol/L (136-145) Potassium Level 3.0 mmol/L (3.5-5.1) 2.8 mmol/L (3.5-5.1) Chloride Level 97 mmol/L (98-107) 98 mmol/L (98-107) Carbon Dioxide Level 28 mmol/L (21-32) 30 mmol/L (21-32) Anion Gap 8 (6-14) 5 (6-14) Blood Urea Nitrogen 7 mg/dL (8-26) 7 mg/dL (8-26) Creatinine 1.4 mg/dL (0.7-1.3) 1.4 mg/dL (0.7-1.3) Estimated GFR (Cockcroft-Gault) 53.0 64.1 BUN/Creatinine Ratio 5 (6-20) Glucose Level 116 mg/dL (70-99) 110 mg/dL (70-99) Calcium Level 7.9 mg/dL (8.5-10.1) 7.3 mg/dL (8.5-10.1) Magnesium Level 1.3 mg/dL (1.8-2.4) 1.5 mg/dL (1.8-2.4) Total Bilirubin 2.0 mg/dL (0.2-1.0) Aspartate Amino Transf (AST/SGOT) 117 U/L (15-37) Alanine Aminotransferase (ALT/SGPT) 44 U/L (16-63) Alkaline Phosphatase 244 U/L (46-116) Troponin I Quantitative < 0.017 ng/mL (0.000-0.055) DX-[id number]-[id number]-Type Natriuretic Peptide 95 pg/mL (0-124) Total Protein 8.1 g/dL (6.4-8.2) Albumin 2.3 g/dL (3.4-5.0) Albumin/Globulin Ratio 0.4 (1.0-1.7) Lipase 202 U/L (73-393) Tumor Marker Alpha Fetoprotein 11.4 ng/mL (0.0-8.3) Ethyl Alcohol Level < 10 mg/dL (0-10) Laboratory Tests Test 08/02/19 04:20 08/02/19 04:30 Magnesium Level 1.5 mg/dL (1.8-2.4) Sodium Level 133 mmol/L (136-145) Potassium Level 2.8 mmol/L (3.5-5.1) Chloride Level 98 mmol/L (98-107) Carbon Dioxide Level 30 mmol/L (21-32) Anion Gap 5 (6-14) Blood Urea Nitrogen 7 mg/dL (8-26) Creatinine 1.4 mg/dL (0.7-1.3) Estimated GFR (Cockcroft-Gault) 64.1 Glucose Level 110 mg/dL (70-99) Calcium Level 7.3 mg/dL (8.5-10.1) Images Images As above Assessment/Plan Assessment/Plan 1. Cirrhosis with ascites. Abdominal discomfort has improved. Imaging as above. Continuing baseline treatments. [facility]. 2. Shortness of breath. Relatively mild at this time. In part secondary to the patient's abdominal swelling. Would continue monitoring and present treatment. Echocardiogram for LV function. 3. Accelerated hypertension. Restart it home medications. Pressures improved. 4. Episodes of chest pain. Resolved. No acute EKG changes. Initial troponin normal. We'll try and troponin and check echo as above. Thank you for allowing us to participate in the care of your patient. KERRY BERNARD MD Aug 02, 2019 14:06
[2019-08-02 15:00] VITALS: BP 119/56
--- NOTE | 2019-08-02 15:31 | PDOC ---
PROGRESS NOTES Chief Complaint Chief Complaint Dyspnea secondary to ascites Right sided to left sided CHEST pain TRansaminitis LIver cirrhosis Obesity HX parcentesis 1 yr ago - [facility] HYPOKALEMIA< critical RAMESH VMN - creat 1.,4 Thrombocytopenia in a cirrhotic - monitor Accelerated hTN - add prn , resumed home medications Hyponatremia , mild (133) in a cirrhotic PLAn: appreciate cards and GI consult may need paracentesis needs to be restarted on diuretics given edema of lower extremities. AFP levels noted FULL CODE Other supprotve meds ordered K replaced, recheck tmr, check mag levels History of Present Illness History of Present Illness No new complaints, no abdominal pain it is more a sensation of fullness, patient has had dietary transgression with increase in salt intake Vitals Vitals Vital Signs Date Time Temp Pulse Resp B/P (MAP) Pulse Ox O2 Delivery O2 Flow Rate FiO2 08/02/19 15:00 98.0 107 24 119/56 (77) 96 Room Air 98.0 Physical Exam General: mild distress Heart: Regular rate Abdomen: Other (mild to moderate swelling) Extremities: No clubbing, No cyanosis, No edema, Normal pulses, No tenderness/swelling Skin: No rashes, No breakdown, No significant lesion Labs LABS Laboratory Tests Test 08/02/19 04:20 08/02/19 04:30 Magnesium Level 1.5 mg/dL (1.8-2.4) Sodium Level 133 mmol/L (136-145) Potassium Level 2.8 mmol/L (3.5-5.1) Chloride Level 98 mmol/L (98-107) Carbon Dioxide Level 30 mmol/L (21-32) Anion Gap 5 (6-14) Blood Urea Nitrogen 7 mg/dL (8-26) Creatinine 1.4 mg/dL (0.7-1.3) Estimated GFR (Cockcroft-Gault) 64.1 Glucose Level 110 mg/dL (70-99) Calcium Level 7.3 mg/dL (8.5-10.1) Assessment and Plan Assessmemt and Plan Problems Medical Problems: (1) Ascites Status: Acute (2) Chest pain Status: Acute (3) Shortness of breath Status: Acute Comment Review of Relevant I have reviewed the following items faraz (where applicable) has been applied. Labs Laboratory Tests Test 08/01/19 11:55 1/17/20 12:04 08/02/19 04:20 08/02/19 04:30 Urine Collection Type Unknown Urine Color Yellow Urine Clarity Clear Urine pH 7.0 Urine Specific [place] 1.010 Urine Protein Negative mg/dL (NEG-TRACE) Urine Glucose (UA) Negative mg/dL (NEG) Urine Ketones (Stick) Negative mg/dL (NEG) Urine Blood Negative (NEG) Urine Nitrite Negative (NEG) Urine Bilirubin Negative (NEG) Urine Urobilinogen Dipstick 1.0 mg/dL (0.2 mg/dL) Urine Leukocyte Esterase Negative (NEG) Urine RBC 3-5 /HPF (0-2) Urine WBC 0 /HPF (0-4) Urine Squamous Epithelial Cells Mod /LPF Urine Bacteria 0 /HPF (0-FEW) Urine Opiates Screen Neg (NEG) Urine Methadone Screen Neg (NEG) Urine Barbiturates Neg (NEG) Urine Phencyclidine Screen Neg (NEG) Urine Amphetamine/Methamphetamine Neg (NEG) Urine Benzodiazepines Screen Neg (NEG) Urine Cocaine Screen Neg (NEG) Urine Cannabinoids Screen Neg (NEG) Urine Ethyl Alcohol Neg (NEG) White Blood Count 7.1 x10^3/uL (4.0-11.0) Red Blood Count 2.58 x10^6/uL (4.30-5.70) Hemoglobin 8.4 g/dL (13.0-17.5) Hematocrit 25.0 % (39.0-53.0) Mean Corpuscular Volume 97 fL (79-100) Mean Corpuscular Hemoglobin 33 pg (25-35) Mean Corpuscular Hemoglobin Concent 34 g/dL (31-37) Red Cell Distribution Width 17.3 % (11.5-14.5) Platelet Count 109 x10^3/uL (140-400) Neutrophils (%) (Auto) 60 % (31-73) Lymphocytes (%) (Auto) 18 % (24-48) Monocytes (%) (Auto) 18 % (0-9) Eosinophils (%) (Auto) 2 % (0-3) Basophils (%) (Auto) 1 % (0-3) Neutrophils # (Auto) 4.3 x10^3/uL (1.8-7.7) Lymphocytes # (Auto) 1.3 x10^3/uL (1.0-4.8) Monocytes # (Auto) 1.3 x10^3/uL (0.0-1.1) Eosinophils # (Auto) 0.2 x10^3/uL (0.0-0.7) Basophils # (Auto) 0.1 x10^3/uL (0.0-0.2) Segmented Neutrophils % 57 % (35-66) Band Neutrophils % 1 % (0-9) Lymphocytes % 13 % (24-48) Monocytes % 20 % (0-10) Eosinophils % 7 % (0-5) Basophils % 2 % (0-3) Platelet Estimate Decreased (ADEQUATE) Large Platelets Present Polychromasia Slight Poikilocytosis Slight Basophilic Stippling Present Anisocytosis Slight Macrocytosis Slight Target Cells Mod Ovalocytes Few Helmet Cells Occ Prothrombin Time 23.4 SEC (11.7-14.0) Prothromb Time International Ratio 2.1 (0.8-1.1) Sodium Level 133 mmol/L (136-145) 133 mmol/L (136-145) Potassium Level 3.0 mmol/L (3.5-5.1) 2.8 mmol/L (3.5-5.1) Chloride Level 97 mmol/L (98-107) 98 mmol/L (98-107) Carbon Dioxide Level 28 mmol/L (21-32) 30 mmol/L (21-32) Anion Gap 8 (6-14) 5 (6-14) Blood Urea Nitrogen 7 mg/dL (8-26) 7 mg/dL (8-26) Creatinine 1.4 mg/dL (0.7-1.3) 1.4 mg/dL (0.7-1.3) Estimated GFR (Cockcroft-Gault) 53.0 64.1 BUN/Creatinine Ratio 5 (6-20) Glucose Level 116 mg/dL (70-99) 110 mg/dL (70-99) Calcium Level 7.9 mg/dL (8.5-10.1) 7.3 mg/dL (8.5-10.1) Magnesium Level 1.3 mg/dL (1.8-2.4) 1.5 mg/dL (1.8-2.4) Total Bilirubin 2.0 mg/dL (0.2-1.0) Aspartate Amino Transf (AST/SGOT) 117 U/L (15-37) Alanine Aminotransferase (ALT/SGPT) 44 U/L (16-63) Alkaline Phosphatase 244 U/L (46-116) Troponin I Quantitative < 0.017 ng/mL (0.000-0.055) LA-Tqb-I-Type Natriuretic Peptide 95 pg/mL (0-124) Total Protein 8.1 g/dL (6.4-8.2) Albumin 2.3 g/dL (3.4-5.0) Albumin/Globulin Ratio 0.4 (1.0-1.7) Lipase 202 U/L (73-393) Tumor Marker Alpha Fetoprotein 11.4 ng/mL (0.0-8.3) Ethyl Alcohol Level < 10 mg/dL (0-10) Laboratory Tests Test 08/02/19 04:20 08/02/19 04:30 Magnesium Level 1.5 mg/dL (1.8-2.4) Sodium Level 133 mmol/L (136-145) Potassium Level 2.8 mmol/L (3.5-5.1) Chloride Level 98 mmol/L (98-107) Carbon Dioxide Level 30 mmol/L (21-32) Anion Gap 5 (6-14) Blood Urea Nitrogen 7 mg/dL (8-26) Creatinine 1.4 mg/dL (0.7-1.3) Estimated GFR (Cockcroft-Gault) 64.1 Glucose Level 110 mg/dL (70-99) Calcium Level 7.3 mg/dL (8.5-10.1) Medications Current Medications Iohexol (Omnipaque 300 Mg/ml) 75 ml 1X ONCE IV Last administered on 08/01/19at 13:27; Start 08/01/19 at 13:15; Stop 08/01/19 at 13:16; Status DC Info (CONTRAST GIVEN -- Rx MONITORING) 1 each PRN DAILY PRN MC SEE COMMENTS; Start 08/01/19 at 13:30; Stop 08/03/19 at 13:29 Potassium Chloride (Klor-Con) 40 meq 1X ONCE PO Last administered on 08/01/19at 14:01; Start 08/01/19 at 13:30; Stop 08/02/19 at 08:54; Status DC Ondansetron HCl (Zofran) 4 mg 1X ONCE IVP Last administered on 08/01/19at 14:01; Start 08/01/19 at 13:30; Stop 08/01/19 at 13:31; Status DC Ondansetron HCl (Zofran) 4 mg PRN Q8HRS PRN IV NAUSEA/VOMITING; Start 08/01/19 at 14:15; Stop 08/02/19 at 14:14; Status DC Fentanyl Citrate (Fentanyl 2ml Vial) 50 mcg PRN Q1HR PRN IV PAIN; Start 08/01/19 at 14:15; Stop 08/02/19 at 14:14; Status DC Albuterol Sulfate (Ventolin Neb Soln) 2.5 mg PRN Q4HRS PRN NEB SHORTNESS OF BREATH; Start 08/01/19 at 15:15 Albuterol/ Ipratropium (Duoneb) 3 ml RTQID NEB Last administered on 08/02/19at 07:57; Start 08/01/19 at 16:00 Clonidine HCl (Catapres) 0.1 mg PRN Q1HR PRN PO HYPERTENSION; Start 08/01/19 at 15:15 Calcium Carbonate/ Glycine (Tums) 500 mg PRN AFTMEALHC PRN PO INDIGESTION; Start 08/01/19 at 15:15 Magnesium Sulfate 50 ml @ 25 mls/hr 1X ONCE IV Last administered on 08/01/19at 18:22; Start 08/01/19 at 17:45; Stop 08/01/19 at 19:44; Status DC Potassium Chloride/Water 100 ml @ 100 mls/hr Q1H IV Last administered on 08/02/19at 06:15; Start 08/02/19 at 06:00; Stop 08/02/19 at 08:54; Status DC Potassium Chloride/Water 100 ml @ 100 mls/hr Q1H IV ; Start 08/02/19 at 10:00; Stop 08/02/19 at 08:54; Status DC Aspirin (Children'S Aspirin) 81 mg DAILY PO Last administered on 08/02/19at 09:44; Start 08/02/19 at 09:00 Furosemide (Lasix) 40 mg DAILY PO Last administered on 08/02/19at 09:44; Start 08/02/19 at 09:00 Non-Formulary Medication (Folic Acid ) 5 mg DAILY PO ; Start 08/02/19 at 09:00; Stop 08/02/19 at 08:55; Status DC Gabapentin (Neurontin) 600 mg TID PO Last administered on 08/02/19at 13:03; Start 08/02/19 at 09:00 Spironolactone (Aldactone) 100 mg DAILY PO Last administered on 08/02/19at 09:43; Start 08/02/19 at 09:00 Potassium Chloride (Klor-Con) 40 meq Q2H PO Last administered on 08/02/19at 13:04; Start 08/02/19 at 08:00; Stop 08/02/19 at 12:01; Status DC Folic Acid (Folic Acid) 1 mg DAILY PO Last administered on 08/02/19at 09:43; Start 08/02/19 at 09:00 Artificial Tears (Artificial Tears) 1 drop PRN Q15MIN PRN OU DRY EYE Last administered on 08/02/19at 13:50; Start 08/02/19 at 13:15 Morphine Sulfate (Morphine Sulfate) 2 mg PRN Q2HR PRN IV MODERATE TO SEVERE PAIN Last administered on 08/02/19at 13:51; Start 08/02/19 at 13:15 Active Scripts Active Reported Gabapentin 600 Mg Tablet 600 Mg PO TID Children's Aspirin (Aspirin) 81 Mg Tab.chew 1 Tab PO DAILY 30 Days Folic Acid 0.8 Mg Capsule 5 Mg PO DAILY 30 Days Furosemide 40 Mg Tablet 1 Tab PO DAILY Spironolactone 100 Mg Tablet 1 Tab PO DAILY Vitals/I & O Vital Sign - Last 24 Hours 08/01/19 08/01/19 08/01/19 08/01/19 16:00 16:15 16:30 16:33 Pulse 108 112 Resp 18 20 B/P (MAP) 132/61 (84) 166/86 (112) Pulse Ox 96 100 95 O2 Delivery Room Air Room Air Room Air Room Air 08/01/19 08/01/19 08/01/19 08/01/19 19:00 20:00 20:47 23:03 Temp 97.5 98.0 97.5 98.0 Pulse 122 111 Resp 20 20 B/P (MAP) 154/67 (96) 136/63 (87) Pulse Ox 100 95 98 O2 Delivery Room Air Room Air Room Air Room Air 08/02/19 08/02/19 08/02/19 08/02/19 03:05 07:00 07:59 08:00 Temp 98.5 97.6 98.5 97.6 Pulse 116 108 Resp 20 24 B/P (MAP) 109/53 (71) 128/58 (81) Pulse Ox 93 98 93 O2 Delivery Room Air Room Air Room Air Room Air 08/02/19 08/02/19 08/02/19 08/02/19 11:00 13:51 14:30 15:00 Temp 98.5 98.0 98.5 98.0 Pulse 113 107 Resp 24 18 24 B/P (MAP) 117/58 (77) 119/56 (77) Pulse Ox 97 97 97 96 O2 Delivery Room Air Room Air Room Air Room Air Intake and Output 08/01/19 08/01/19 08/02/19 15:00 23:00 07:00 Intake Total 460 ml 240 ml Output Total 700 ml 600 ml Balance -240 ml -360 ml KENNEDY MASCORRO MD Aug 02, 2019 15:31
--- NOTE | 2019-08-02 17:02 | PDOC2 ---
GI CONSULT Reason For Consult: ascites HPI: HPI: 53 obese AA male, he has hx EtOH cirrhosis, and quit drinking since the dx, needed a paracentesis last yr, HE has SOA, cant sit up bec has SOA, chestpains too RT to left side, HIS LFTS are moderately elevated with elev TB and alk phosphatase, HSi CXR is normal ,BP high side bec of restlessness, HE is sinus tacycardic. K low, getting 40 PO x 1. He takes Lawsix 40 mg and Spironolactone 100 mg daily. He has been eating more salt lately and attributes his ascites to salt intake Na 133, platelets low, 100s, creat 1,4\HE does not smoke CT consistent with cirrhosis. There is a small amount of ascites. 3. Tiny hypodensity in the right lobe liver measuring about 5 mm, nonspecific. Correlate with alpha-fetoprotein values. Follow-up biphasic CT or MRI in 6 months to ensure stability. 4. Small ventral hernias containing ascitic fluid. He has enver had an EGD or colonoscopy PMH: PMH: Past Medical History Cardiovascular: HTN Heme/Onc: Anemia NOS, Other (liver cirrhosis) Past Surgical History Past Surgical History: Other (paracentesis a yr ago) Social History Smoke: No ALCOHOL: other (quit since the dx of cirrhosis) Drugs: None Current Problem List Problem List Problems Medical Problems: (1) Ascites Status: Acute (2) Chest pain Status: Acute (3) Shortness of breath Status: Acute Current Medications Current Medications Home meds Lasix 40 daily Spironolactone 100 mg daily Allergies Allergies: Coded Allergies: No Known Drug Allergies (Unverified , 08/01/19) Social History: Smoke: No ALCOHOL: other (discontinued.) Drugs: None ROS: ROS Review of System as per hPI< soa, distended, cant breathe VItals: Vitals: Vital Signs Date Time Temp Pulse Resp B/P (MAP) Pulse Ox O2 Delivery O2 Flow Rate FiO2 08/02/19 16:52 96 Room Air 08/02/19 16:15 18 08/02/19 15:00 98.0 107 119/56 (77) 98.0 Labs: Labs: Laboratory Tests Test 08/02/19 04:20 08/02/19 04:30 Magnesium Level 1.5 mg/dL (1.8-2.4) Sodium Level 133 mmol/L (136-145) Potassium Level 2.8 mmol/L (3.5-5.1) Chloride Level 98 mmol/L (98-107) Carbon Dioxide Level 30 mmol/L (21-32) Anion Gap 5 (6-14) Blood Urea Nitrogen 7 mg/dL (8-26) Creatinine 1.4 mg/dL (0.7-1.3) Estimated GFR (Cockcroft-Gault) 64.1 Glucose Level 110 mg/dL (70-99) Calcium Level 7.3 mg/dL (8.5-10.1) Imaging: Imaging: IMPRESSION: 1. No acute abnormality of abdomen or pelvis. Normal appendix. 2. Findings consistent with cirrhosis. There is a small amount of ascites. 3. Tiny hypodensity in the right lobe liver measuring about 5 mm, nonspecific. Correlate with alpha-fetoprotein values. Follow-up biphasic CT or MRI in 6 months to ensure stability. 4. Small ventral hernias containing ascitic fluid. PE: Physical Exam General: Alert, Oriented X3, Cooperative, mild distress, Other (cant get comfortable) HEENT: Atraumatic, PERRLA Lungs: Normal air movement, Other (sinus tachy, equal air entry, no wheezing or crackles) Heart: S1S2, no thrills, no rubs, no gallops, no jug vein distention Abdomen: Soft, Other (distended tympnaitic on all esle, but dull to RUQ) Extremities: No clubbing, No cyanosis, No edema, Normal pulses, No tenderness/swelling Skin: No rashes, No breakdown, No significant lesion Neuro: Normal gait, Normal speech, Strength at 5/5 X4 ext, Normal tone, Sensation intact, Cranial nerves 3-12 NL, Reflexes 2+ A/P: A/P: A 1) Ascites 2) Abd distention 3) Hyponatremia 4) Hypokalemia 5) Anemia P 1) Restart Spironolactone 2) Hold Lasix given low Na 3) Replace magnesium and K 4) Consult IT for paracentesis 5) He needs outpt EGD fro EV screen and C scope for CRC screen. GLORIA ODOM MD Aug 02, 2019 17:02
[2019-08-02 19:00] VITALS: BP 133/62
[2019-08-02 23:16] VITALS: BP 125/58
[2019-08-03 03:21] VITALS: BP 142/67
[2019-08-03 07:00] VITALS: BP 145/65
[2019-08-03] MEDS: IPRATRPIUM/ALBUTEROL 0.5/2.5MG 3 ML NEBU. NEB SCH ×2 (08:08→12:00)
[2019-08-03 08:23] LABS: BASO # 0.1 x10^3/uL (0.0-0.2); BASO % 1 % (0-3); EOS # 0.2 x10^3/uL (0.0-0.7); EOS % 3 % (0-3); HEMATOCRIT 22.7 % (39.0-53.0); HEMOGLOBIN 7.7 g/dL (13.0-17.5); LYMPH # 0.9 x10^3/uL (1.0-4.8); LYMPH % 14 % (24-48); MEAN CORPUSCULAR HEMOGLOBIN 33 pg (25-35); MEAN CORPUSCULAR HGB CONC 34 g/dL (31-37); MEAN CORPUSCULAR VOLUME 97 fL (79-100); MONO # 1.2 x10^3/uL (0.0-1.1); MONO % 19 % (0-9); NEUT % 63 % (31-73); PLATELET COUNT 87 x10^3/uL (140-400); RED BLOOD COUNT 2.34 x10^6/uL (4.30-5.70); RED CELL DISTRIBUTION WIDTH 17.9 % (11.5-14.5); WHITE BLOOD COUNT 6.3 x10^3/uL (4.0-11.0)
[2019-08-03 08:31] LABS: CALCIUM 7.5 mg/dL (8.5-10.1); CREATININE 1.3 mg/dL (0.7-1.3); GFR 69.9; POTASSIUM 3.8 mmol/L (3.5-5.1)
[2019-08-03] MEDS: SPIRONOLACTONE 25 MG TABLET PO SCH (09:38)
[2019-08-03] MEDS: FUROSEMIDE 40 MG TABLET. PO SCH (09:39)
[2019-08-03] MEDS: FOLIC ACID 1 MG TABLET. PO SCH (09:39)
[2019-08-03] MEDS: GABAPENTIN 300 MG CAPSULE. PO SCH ×3 (09:39→20:28)
[2019-08-03] MEDS: ASPIRIN CHEWABLE 81 MG TABLET. PO SCH (09:39)
[2019-08-03] MEDS: MORPHINE SULFATE 2 MG/ML VIAL. IV PRN ×2 (09:41→20:28)
[2019-08-03 10:55] VITALS: BP 124/60
--- NOTE | 2019-08-03 11:56 | PDOC ---
PROGRESS NOTES Subjective Subjective Patient seen and examined Objective Objective Vital Signs Date Time Temp Pulse Resp B/P (MAP) Pulse Ox O2 Delivery O2 Flow Rate FiO2 08/03/19 10:55 98.0 106 20 124/60 (81) 99 Room Air 98.0 Intake and Output 08/03/19 07:00 Intake Total 620 ml Output Total 1300 ml Balance -680 ml Intake Oral 620 ml Output Urine Total 1300 ml # Voids 1 Physical Exam Abdomen: Normal bowel sounds Heart: Other (rate of 100) General: mild distress Lungs: Other (slightly decreased breath sounds) Assessment Assessment Problems Medical Problems: (1) Ascites Status: Acute (2) Chest pain Status: Acute (3) Shortness of breath Status: Acute 1. Cirrhosis with ascites. Abdominal discomfort has improved. Imaging as above. Continuing baseline treatments. The patient is followed for the MI. 2. Shortness of breath. Relatively improved. In part secondary to the patient's abdominal swelling. Would continue monitoring and present treatment. Echocardiogram for LV function pending. 3. Accelerated hypertension. Restart it home medications. Pressures improved. 4. Episodes of chest pain. Resolved. No acute EKG changes. Troponin normal x 2. Continue present treatment. Comment Review of Relevant I have reviewed the following items faraz (where applicable) has been applied. Labs Laboratory Tests Test 08/01/19 11:55 08/01/19 12:04 08/02/19 04:20 08/02/19 04:30 Urine Collection Type Unknown Urine Color Yellow Urine Clarity Clear Urine pH 7.0 Urine Specific [place] 1.010 Urine Protein Negative mg/dL (NEG-TRACE) Urine Glucose (UA) Negative mg/dL (NEG) Urine Ketones (Stick) Negative mg/dL (NEG) Urine Blood Negative (NEG) Urine Nitrite Negative (NEG) Urine Bilirubin Negative (NEG) Urine Urobilinogen Dipstick 1.0 mg/dL (0.2 mg/dL) Urine Leukocyte Esterase Negative (NEG) Urine RBC 3-5 /HPF (0-2) Urine WBC 0 /HPF (0-4) Urine Squamous Epithelial Cells Mod /LPF Urine Bacteria 0 /HPF (0-FEW) Urine Opiates Screen Neg (NEG) Urine Methadone Screen Neg (NEG) Urine Barbiturates Neg (NEG) Urine Phencyclidine Screen Neg (NEG) Urine Amphetamine/Methamphetamine Neg (NEG) Urine Benzodiazepines Screen Neg (NEG) Urine Cocaine Screen Neg (NEG) Urine Cannabinoids Screen Neg (NEG) Urine Ethyl Alcohol Neg (NEG) White Blood Count 7.1 x10^3/uL (4.0-11.0) Red Blood Count 2.58 x10^6/uL (4.30-5.70) Hemoglobin 8.4 g/dL (13.0-17.5) Hematocrit 25.0 % (39.0-53.0) Mean Corpuscular Volume 97 fL (79-100) Mean Corpuscular Hemoglobin 33 pg (25-35) Mean Corpuscular Hemoglobin Concent 34 g/dL (31-37) Red Cell Distribution Width 17.3 % (11.5-14.5) Platelet Count 109 x10^3/uL (140-400) Neutrophils (%) (Auto) 60 % (31-73) Lymphocytes (%) (Auto) 18 % (24-48) Monocytes (%) (Auto) 18 % (0-9) Eosinophils (%) (Auto) 2 % (0-3) Basophils (%) (Auto) 1 % (0-3) Neutrophils # (Auto) 4.3 x10^3/uL (1.8-7.7) Lymphocytes # (Auto) 1.3 x10^3/uL (1.0-4.8) Monocytes # (Auto) 1.3 x10^3/uL (0.0-1.1) Eosinophils # (Auto) 0.2 x10^3/uL (0.0-0.7) Basophils # (Auto) 0.1 x10^3/uL (0.0-0.2) Segmented Neutrophils % 57 % (35-66) Band Neutrophils % 1 % (0-9) Lymphocytes % 13 % (24-48) Monocytes % 20 % (0-10) Eosinophils % 7 % (0-5) Basophils % 2 % (0-3) Platelet Estimate Decreased (ADEQUATE) Large Platelets Present Polychromasia Slight Poikilocytosis Slight Basophilic Stippling Present Anisocytosis Slight Macrocytosis Slight Target Cells Mod Ovalocytes Few Helmet Cells Occ Prothrombin Time 23.4 SEC (11.7-14.0) Prothromb Time International Ratio 2.1 (0.8-1.1) Sodium Level 133 mmol/L (136-145) 133 mmol/L (136-145) Potassium Level 3.0 mmol/L (3.5-5.1) 2.8 mmol/L (3.5-5.1) Chloride Level 97 mmol/L (98-107) 98 mmol/L (98-107) Carbon Dioxide Level 28 mmol/L (21-32) 30 mmol/L (21-32) Anion Gap 8 (6-14) 5 (6-14) Blood Urea Nitrogen 7 mg/dL (8-26) 7 mg/dL (8-26) Creatinine 1.4 mg/dL (0.7-1.3) 1.4 mg/dL (0.7-1.3) Estimated GFR (Cockcroft-Gault) 53.0 64.1 BUN/Creatinine Ratio 5 (6-20) Glucose Level 116 mg/dL (70-99) 110 mg/dL (70-99) Calcium Level 7.9 mg/dL (8.5-10.1) 7.3 mg/dL (8.5-10.1) Magnesium Level 1.3 mg/dL (1.8-2.4) 1.5 mg/dL (1.8-2.4) Total Bilirubin 2.0 mg/dL (0.2-1.0) Aspartate Amino Transf (AST/SGOT) 117 U/L (15-37) Alanine Aminotransferase (ALT/SGPT) 44 U/L (16-63) Alkaline Phosphatase 244 U/L (46-116) Troponin I Quantitative < 0.017 ng/mL (0.000-0.055) FQ-Myq-T-Type Natriuretic Peptide 95 pg/mL (0-124) Total Protein 8.1 g/dL (6.4-8.2) Albumin 2.3 g/dL (3.4-5.0) Albumin/Globulin Ratio 0.4 (1.0-1.7) Lipase 202 U/L (73-393) Tumor Marker Alpha Fetoprotein 11.4 ng/mL (0.0-8.3) Ethyl Alcohol Level < 10 mg/dL (0-10) Test 08/03/19 04:10 White Blood Count 6.3 x10^3/uL (4.0-11.0) Red Blood Count 2.34 x10^6/uL (4.30-5.70) Hemoglobin 7.7 g/dL (13.0-17.5) Hematocrit 22.7 % (39.0-53.0) Mean Corpuscular Volume 97 fL (79-100) Mean Corpuscular Hemoglobin 33 pg (25-35) Mean Corpuscular Hemoglobin Concent 34 g/dL (31-37) Red Cell Distribution Width 17.9 % (11.5-14.5) Platelet Count 87 x10^3/uL (140-400) Neutrophils (%) (Auto) 63 % (31-73) Lymphocytes (%) (Auto) 14 % (24-48) Monocytes (%) (Auto) 19 % (0-9) Eosinophils (%) (Auto) 3 % (0-3) Basophils (%) (Auto) 1 % (0-3) Neutrophils # (Auto) 4.0 x10^3/uL (1.8-7.7) Lymphocytes # (Auto) 0.9 x10^3/uL (1.0-4.8) Monocytes # (Auto) 1.2 x10^3/uL (0.0-1.1) Eosinophils # (Auto) 0.2 x10^3/uL (0.0-0.7) Basophils # (Auto) 0.1 x10^3/uL (0.0-0.2) Sodium Level 132 mmol/L (136-145) Potassium Level 3.8 mmol/L (3.5-5.1) Chloride Level 96 mmol/L (98-107) Carbon Dioxide Level 27 mmol/L (21-32) Anion Gap 9 (6-14) Blood Urea Nitrogen 7 mg/dL (8-26) Creatinine 1.3 mg/dL (0.7-1.3) Estimated GFR (Cockcroft-Gault) 69.9 Glucose Level 114 mg/dL (70-99) Calcium Level 7.5 mg/dL (8.5-10.1) Troponin I Quantitative < 0.017 ng/mL (0.000-0.055) Laboratory Tests Test 08/03/19 04:10 White Blood Count 6.3 x10^3/uL (4.0-11.0) Red Blood Count 2.34 x10^6/uL (4.30-5.70) Hemoglobin 7.7 g/dL (13.0-17.5) Hematocrit 22.7 % (39.0-53.0) Mean Corpuscular Volume 97 fL (79-100) Mean Corpuscular Hemoglobin 33 pg (25-35) Mean Corpuscular Hemoglobin Concent 34 g/dL (31-37) Red Cell Distribution Width 17.9 % (11.5-14.5) Platelet Count 87 x10^3/uL (140-400) Neutrophils (%) (Auto) 63 % (31-73) Lymphocytes (%) (Auto) 14 % (24-48) Monocytes (%) (Auto) 19 % (0-9) Eosinophils (%) (Auto) 3 % (0-3) Basophils (%) (Auto) 1 % (0-3) Neutrophils # (Auto) 4.0 x10^3/uL (1.8-7.7) Lymphocytes # (Auto) 0.9 x10^3/uL (1.0-4.8) Monocytes # (Auto) 1.2 x10^3/uL (0.0-1.1) Eosinophils # (Auto) 0.2 x10^3/uL (0.0-0.7) Basophils # (Auto) 0.1 x10^3/uL (0.0-0.2) Sodium Level 132 mmol/L (136-145) Potassium Level 3.8 mmol/L (3.5-5.1) Chloride Level 96 mmol/L (98-107) Carbon Dioxide Level 27 mmol/L (21-32) Anion Gap 9 (6-14) Blood Urea Nitrogen 7 mg/dL (8-26) Creatinine 1.3 mg/dL (0.7-1.3) Estimated GFR (Cockcroft-Gault) 69.9 Glucose Level 114 mg/dL (70-99) Calcium Level 7.5 mg/dL (8.5-10.1) Troponin I Quantitative < 0.017 ng/mL (0.000-0.055) Medications Current Medications Iohexol (Omnipaque 300 Mg/ml) 75 ml 1X ONCE IV Last administered on 08/01/19at 13:27; Start 08/01/19 at 13:15; Stop 08/01/19 at 13:16; Status DC Info (CONTRAST GIVEN -- Rx MONITORING) 1 each PRN DAILY PRN MC SEE COMMENTS; Start 08/01/19 at 13:30; Stop 08/03/19 at 13:29 Potassium Chloride (Klor-Con) 40 meq 1X ONCE PO Last administered on 08/01/19at 14:01; Start 08/01/19 at 13:30; Stop 08/02/19 at 08:54; Status DC Ondansetron HCl (Zofran) 4 mg 1X ONCE IVP Last administered on 08/01/19at 14:01; Start 08/01/19 at 13:30; Stop 08/01/19 at 13:31; Status DC Ondansetron HCl (Zofran) 4 mg PRN Q8HRS PRN IV NAUSEA/VOMITING; Start 08/01/19 at 14:15; Stop 08/02/19 at 14:14; Status DC Fentanyl Citrate (Fentanyl 2ml Vial) 50 mcg PRN Q1HR PRN IV PAIN; Start 08/01/19 at 14:15; Stop 08/02/19 at 14:14; Status DC Albuterol Sulfate (Ventolin Neb Soln) 2.5 mg PRN Q4HRS PRN NEB SHORTNESS OF BREATH; Start 08/01/19 at 15:15 Albuterol/ Ipratropium (Duoneb) 3 ml RTQID NEB Last administered on 08/03/19at 08:08; Start 08/01/19 at 16:00 Clonidine HCl (Catapres) 0.1 mg PRN Q1HR PRN PO HYPERTENSION; Start 08/01/19 at 15:15 Calcium Carbonate/ Glycine (Tums) 500 mg PRN AFTMEALHC PRN PO INDIGESTION; Start 08/01/19 at 15:15 Magnesium Sulfate 50 ml @ 25 mls/hr 1X ONCE IV Last administered on 08/01/19at 18:22; Start 08/01/19 at 17:45; Stop 08/01/19 at 19:44; Status DC Potassium Chloride/Water 100 ml @ 100 mls/hr Q1H IV Last administered on 08/02/19at 06:15; Start 08/02/19 at 06:00; Stop 08/02/19 at 08:54; Status DC Potassium Chloride/Water 100 ml @ 100 mls/hr Q1H IV ; Start 08/02/19 at 10:00; Stop 08/02/19 at 08:54; Status DC Aspirin (Children'S Aspirin) 81 mg DAILY PO Last administered on 08/03/19at 09: 39; Start 08/02/19 at 09:00 Furosemide (Lasix) 40 mg DAILY PO Last administered on 08/03/19at 09:39; Start 08/02/19 at 09:00 Non-Formulary Medication (Folic Acid ) 5 mg DAILY PO ; Start 08/02/19 at 09:00; Stop 08/02/19 at 08:55; Status DC Gabapentin (Neurontin) 600 mg TID PO Last administered on 08/03/19at 09:39; Start 08/02/19 at 09:00 Spironolactone (Aldactone) 100 mg DAILY PO Last administered on 08/03/19at 09:38; Start 08/02/19 at 09:00 Potassium Chloride (Klor-Con) 40 meq Q2H PO Last administered on 08/02/19at 13:04; Start 08/02/19 at 08:00; Stop 08/02/19 at 12:01; Status DC Folic Acid (Folic Acid) 1 mg DAILY PO Last administered on 08/03/19at 09:39; Start 08/02/19 at 09:00 Artificial Tears (Artificial Tears) 1 drop PRN Q15MIN PRN OU DRY EYE Last adm inistered on 08/02/19at 16:14; Start 08/02/19 at 13:15 Morphine Sulfate (Morphine Sulfate) 2 mg PRN Q2HR PRN IV MODERATE TO SEVERE PAIN Last administered on 08/03/19at 09:41; Start 08/02/19 at 13:15 Active Scripts Active Reported Gabapentin 600 Mg Tablet 600 Mg PO TID Children's Aspirin (Aspirin) 81 Mg Tab.chew 1 Tab PO DAILY 30 Days Folic Acid 0.8 Mg Capsule 5 Mg PO DAILY 30 Days Furosemide 40 Mg Tablet 1 Tab PO DAILY Spironolactone 100 Mg Tablet 1 Tab PO DAILY Vitals/I & O Vital Sign - Last 24 Hours 08/02/19 08/02/19 08/02/19 08/02/19 13:51 14:30 15:00 16:15 Temp 98.0 98.0 Pulse 107 Resp 18 24 18 B/P (MAP) 119/56 (77) Pulse Ox 97 97 96 96 O2 Delivery Room Air Room Air Room Air Room Air 08/02/19 08/02/19 08/02/19 1/18/20 16:52 16:54 18:54 19:00 Temp 98.4 98.4 Pulse 112 Resp 18 B/P (MAP) 133/62 (85) Pulse Ox 96 96 100 O2 Delivery Room Air Room Air Room Air Room Air 08/02/19 08/02/19 08/02/19 08/02/19 19:24 19:45 20:17 23:16 Temp 97.2 97.2 Pulse 115 Resp 20 B/P (MAP) 125/58 (80) Pulse Ox 98 98 O2 Delivery Room Air Room Air Room Air Room Air 08/03/19 08/03/19 08/03/19 08/03/19 03:21 07:00 07:52 08:09 Temp 98.4 98.2 98.4 98.2 Pulse 110 109 Resp 18 22 B/P (MAP) 142/67 (92) 145/65 (91) Pulse Ox 98 98 97 O2 Delivery Room Air Room Air Room Air Room Air 08/03/19 08/03/19 08/03/19 09:41 10:11 10:55 Temp 98.0 98.0 Pulse 106 Resp 18 20 B/P (MAP) 124/60 (81) Pulse Ox 97 97 99 O2 Delivery Room Air Room Air Room Air Intake and Output 08/02/19 08/02/19 08/03/19 15:00 23:00 07:00 Intake Total 400 ml 220 ml Output Total 400 ml 250 ml 650 ml Balance -400 ml 150 ml -430 ml KERRY BERNARD MD Aug 03, 2019 11:56
--- NOTE | 2019-08-03 14:28 | PDOC ---
Subjective: Subjective: He admits to decreased ARI Objective: Vital Signs: Vital Signs Date Time Temp Pulse Resp B/P (MAP) Pulse Ox O2 Delivery O2 Flow Rate FiO2 08/03/19 10:55 98.0 106 20 124/60 (81) 99 Room Air 98.0 Labs: Laboratory Tests Test 08/03/19 04:10 White Blood Count 6.3 x10^3/uL (4.0-11.0) Red Blood Count 2.34 x10^6/uL (4.30-5.70) Hemoglobin 7.7 g/dL (13.0-17.5) Hematocrit 22.7 % (39.0-53.0) Mean Corpuscular Volume 97 fL (79-100) Mean Corpuscular Hemoglobin 33 pg (25-35) Mean Corpuscular Hemoglobin Concent 34 g/dL (31-37) Red Cell Distribution Width 17.9 % (11.5-14.5) Platelet Count 87 x10^3/uL (140-400) Neutrophils (%) (Auto) 63 % (31-73) Lymphocytes (%) (Auto) 14 % (24-48) Monocytes (%) (Auto) 19 % (0-9) Eosinophils (%) (Auto) 3 % (0-3) Basophils (%) (Auto) 1 % (0-3) Neutrophils # (Auto) 4.0 x10^3/uL (1.8-7.7) Lymphocytes # (Auto) 0.9 x10^3/uL (1.0-4.8) Monocytes # (Auto) 1.2 x10^3/uL (0.0-1.1) Eosinophils # (Auto) 0.2 x10^3/uL (0.0-0.7) Basophils # (Auto) 0.1 x10^3/uL (0.0-0.2) Sodium Level 132 mmol/L (136-145) Potassium Level 3.8 mmol/L (3.5-5.1) Chloride Level 96 mmol/L (98-107) Carbon Dioxide Level 27 mmol/L (21-32) Anion Gap 9 (6-14) Blood Urea Nitrogen 7 mg/dL (8-26) Creatinine 1.3 mg/dL (0.7-1.3) Estimated GFR (Cockcroft-Gault) 69.9 Glucose Level 114 mg/dL (70-99) Calcium Level 7.5 mg/dL (8.5-10.1) Troponin I Quantitative < 0.017 ng/mL (0.000-0.055) Physical Exam: Physical Exam: Physical Exam General: Alert, Oriented X3, Cooperative, mild distress, Other (cant get comf ortable) HEENT: Atraumatic, PERRLA Lungs: Normal air movement, Other (sinus tachy, equal air entry, no wheezing or crackles) Heart: S1S2, no thrills, no rubs, no gallops, no jug vein distention Abdomen: Soft, Other (distended tympnaitic on all esle, but dull to RUQ) Extremities: No clubbing, No cyanosis, No edema, Normal pulses, No tenderness/swelling Skin: No rashes, No breakdown, No significant lesion Neuro: Normal gait, Normal speech, Strength at 5/5 X4 ext, Normal tone, Sensati on intact, Cranial nerves 3-12 NL, Reflexes 2+ Assessment & Plan: Assessment : A 1) Ascites 2) Abd distention 3) Hyponatremia 4) Hypokalemia 5) Anemia- Hgb downt o 7.7 Plan: P 1) Restart Spironolactone 2) Hold Lasix given low Na 3) Replace magnesium and K 4) Consult IR for paracentesis will check abd sono given small ascites on CT 5) He needs outpt EGD fro EV screen and C scope for CRC screen. GLORIA ODOM MD Aug 03, 2019 14:28
--- NOTE | 2019-08-03 14:56 | RAD ---
Limited abdominal ultrasound dated 08/03/2019. No comparison available. Clinical data indication ascites. FINDINGS: Limited four-quadrant ultrasound performed. There is a small amount of ascites. IMPRESSION: Small amount of ascites. Electronically signed by: Ayush Mann MD (08/03/2019 2:53 PM) [facility]
[2019-08-03 15:00] VITALS: BP 118/56
[2019-08-03 19:20] VITALS: BP 124/58
[2019-08-03 22:55] VITALS: BP 143/71
[2019-08-04] VITALS (12 sets, daily range): BP systolic 116–175; BP diastolic 55–77
[2019-08-04 05:28] LABS: ALBUMIN 1.9 g/dL (3.4-5.0); ALBUMIN/GLOBULIN RATIO 0.3 (1.0-1.7); CALCIUM 7.6 mg/dL (8.5-10.1); CREATININE 1.3 mg/dL (0.7-1.3); GFR 69.9; TOTAL BILIRUBIN 2.3 mg/dL (0.2-1.0); TOTAL PROTEIN 7.4 g/dL (6.4-8.2)
--- NOTE | 2019-08-04 07:50 | PDOC ---
PROGRESS NOTES Chief Complaint Chief Complaint late entry note for 08/13/2019 Dyspnea secondary to ascites Right sided to left sided CHEST pain TRansaminitis LIver cirrhosis Obesity HX parcentesis 1 yr ago - [place] HYPOKALEMIA< critical RAMESH VMN - creat 1.,4 Thrombocytopenia in a cirrhotic - monitor Accelerated hTN - add prn , resumed home medications Hyponatremia , mild (133) in a cirrhotic PLAn: appreciate cards and GI consult IR consulted for paracentesis in the am needs to be restarted on diuretics given edema of lower extremities. AFP levels noted FULL CODE Other supprotve meds ordered K replaced, recheck tmr, check mag levels History of Present Illness History of Present Illness No new complaints, no abdominal pain it is more a sensation of fullness, patient has had dietary transgression with increase in salt intake Vitals Vitals Vital Signs Date Time Temp Pulse Resp B/P (MAP) Pulse Ox O2 Delivery O2 Flow Rate FiO2 08/04/19 02:57 98.2 109 18 118/56 (76) 97 Room Air 98.2 Physical Exam General: mild distress Heart: Other (rate of 100) Abdomen: Normal bowel sounds Extremities: No clubbing, No cyanosis, No edema, Normal pulses, No tenderness/swelling Skin: No rashes, No breakdown, No significant lesion Labs LABS Laboratory Tests Test 08/04/19 04:25 Sodium Level 131 mmol/L (136-145) Potassium Level 4.0 mmol/L (3.5-5.1) Chloride Level 97 mmol/L (98-107) Carbon Dioxide Level 26 mmol/L (21-32) Anion Gap 8 (6-14) Blood Urea Nitrogen 8 mg/dL (8-26) Creatinine 1.3 mg/dL (0.7-1.3) Estimated GFR (Cockcroft-Gault) 69.9 BUN/Creatinine Ratio 6 (6-20) Glucose Level 122 mg/dL (70-99) Calcium Level 7.6 mg/dL (8.5-10.1) Total Bilirubin 2.3 mg/dL (0.2-1.0) Aspartate Amino Transf (AST/SGOT) 79 U/L (15-37) Alanine Aminotransferase (ALT/SGPT) 26 U/L (16-63) Alkaline Phosphatase 163 U/L (46-116) Total Protein 7.4 g/dL (6.4-8.2) Albumin 1.9 g/dL (3.4-5.0) Albumin/Globulin Ratio 0.3 (1.0-1.7) Assessment and Plan Assessmemt and Plan Problems Medical Problems: (1) Ascites Status: Acute (2) Chest pain Status: Acute (3) Shortness of breath Status: Acute Comment Review of Relevant I have reviewed the following items faraz (where applicable) has been applied. Labs Laboratory Tests Test 08/03/19 04:10 08/04/19 04:25 White Blood Count 6.3 x10^3/uL (4.0-11.0) Red Blood Count 2.34 x10^6/uL (4.30-5.70) Hemoglobin 7.7 g/dL (13.0-17.5) Hematocrit 22.7 % (39.0-53.0) Mean Corpuscular Volume 97 fL (79-100) Mean Corpuscular Hemoglobin 33 pg (25-35) Mean Corpuscular Hemoglobin Concent 34 g/dL (31-37) Red Cell Distribution Width 17.9 % (11.5-14.5) Platelet Count 87 x10^3/uL (140-400) Neutrophils (%) (Auto) 63 % (31-73) Lymphocytes (%) (Auto) 14 % (24-48) Monocytes (%) (Auto) 19 % (0-9) Eosinophils (%) (Auto) 3 % (0-3) Basophils (%) (Auto) 1 % (0-3) Neutrophils # (Auto) 4.0 x10^3/uL (1.8-7.7) Lymphocytes # (Auto) 0.9 x10^3/uL (1.0-4.8) Monocytes # (Auto) 1.2 x10^3/uL (0.0-1.1) Eosinophils # (Auto) 0.2 x10^3/uL (0.0-0.7) Basophils # (Auto) 0.1 x10^3/uL (0.0-0.2) Sodium Level 132 mmol/L (136-145) 131 mmol/L (136-145) Potassium Level 3.8 mmol/L (3.5-5.1) 4.0 mmol/L (3.5-5.1) Chloride Level 96 mmol/L (98-107) 97 mmol/L (98-107) Carbon Dioxide Level 27 mmol/L (21-32) 26 mmol/L (21-32) Anion Gap 9 (6-14) 8 (6-14) Blood Urea Nitrogen 7 mg/dL (8-26) 8 mg/dL (8-26) Creatinine 1.3 mg/dL (0.7-1.3) 1.3 mg/dL (0.7-1.3) Estimated GFR (Cockcroft-Gault) 69.9 69.9 Glucose Level 114 mg/dL (70-99) 122 mg/dL (70-99) Calcium Level 7.5 mg/dL (8.5-10.1) 7.6 mg/dL (8.5-10.1) Troponin I Quantitative < 0.017 ng/mL (0.000-0.055) BUN/Creatinine Ratio 6 (6-20) Total Bilirubin 2.3 mg/dL (0.2-1.0) Aspartate Amino Transf (AST/SGOT) 79 U/L (15-37) Alanine Aminotransferase (ALT/SGPT) 26 U/L (16-63) Alkaline Phosphatase 163 U/L (46-116) Total Protein 7.4 g/dL (6.4-8.2) Albumin 1.9 g/dL (3.4-5.0) Albumin/Globulin Ratio 0.3 (1.0-1.7) Laboratory Tests Test 08/04/19 04:25 Sodium Level 131 mmol/L (136-145) Potassium Level 4.0 mmol/L (3.5-5.1) Chloride Level 97 mmol/L (98-107) Carbon Dioxide Level 26 mmol/L (21-32) Anion Gap 8 (6-14) Blood Urea Nitrogen 8 mg/dL (8-26) Creatinine 1.3 mg/dL (0.7-1.3) Estimated GFR (Cockcroft-Gault) 69.9 BUN/Creatinine Ratio 6 (6-20) Glucose Level 122 mg/dL (70-99) Calcium Level 7.6 mg/dL (8.5-10.1) Total Bilirubin 2.3 mg/dL (0.2-1.0) Aspartate Amino Transf (AST/SGOT) 79 U/L (15-37) Alanine Aminotransferase (ALT/SGPT) 26 U/L (16-63) Alkaline Phosphatase 163 U/L (46-116) Total Protein 7.4 g/dL (6.4-8.2) Albumin 1.9 g/dL (3.4-5.0) Albumin/Globulin Ratio 0.3 (1.0-1.7) Medications Current Medications Iohexol (Omnipaque 300 Mg/ml) 75 ml 1X ONCE IV Last administered on 08/01/19at 13:27; Start 08/01/19 at 13:15; Stop 08/01/19 at 13:16; Status DC Info (CONTRAST GIVEN -- Rx MONITORING) 1 each PRN DAILY PRN MC SEE COMMENTS; Start 08/01/19 at 13:30; Stop 08/03/19 at 13:29; Status DC Potassium Chloride (Klor-Con) 40 meq 1X ONCE PO Last administered on 08/01/19at 14:01; Start 08/01/19 at 13:30; Stop 08/02/19 at 08:54; Status DC Ondansetron HCl (Zofran) 4 mg 1X ONCE IVP Last administered on 08/01/19at 14:01; Start 08/01/19 at 13:30; Stop 08/01/19 at 13:31; Status DC Ondansetron HCl (Zofran) 4 mg PRN Q8HRS PRN IV NAUSEA/VOMITING; Start 08/01/19 at 14:15; Stop 08/02/19 at 14:14; Status DC Fentanyl Citrate (Fentanyl 2ml Vial) 50 mcg PRN Q1HR PRN IV PAIN; Start 08/01/19 at 14:15; Stop 08/02/19 at 14:14; Status DC Albuterol Sulfate (Ventolin Neb Soln) 2.5 mg PRN Q4HRS PRN NEB SHORTNESS OF BREATH; Start 08/01/19 at 15:15 Albuterol/ Ipratropium (Duoneb) 3 ml RTQID NEB Last administered on 08/03/19at 08:08; Start 08/01/19 at 16:00; Stop 08/03/19 at 15:40; Status DC Clonidine HCl (Catapres) 0.1 mg PRN Q1HR PRN PO HYPERTENSION; Start 08/01/19 at 15:15 Calcium Carbonate/ Glycine (Tums) 500 mg PRN AFTMEALHC PRN PO INDIGESTION; Sta rt 08/01/19 at 15:15 Magnesium Sulfate 50 ml @ 25 mls/hr 1X ONCE IV Last administered on 08/01/19at 18:22; Start 08/01/19 at 17:45; Stop 08/01/19 at 19:44; Status DC Potassium Chloride/Water 100 ml @ 100 mls/hr Q1H IV Last administered on 08/02/19at 06:15; Start 08/02/19 at 06:00; Stop 08/02/19 at 08:54; Status DC Potassium Chloride/Water 100 ml @ 100 mls/hr Q1H IV ; Start 08/02/19 at 10:00; Stop 08/02/19 at 08:54; Status DC Aspirin (Children'S Aspirin) 81 mg DAILY PO Last administered on 08/03/19at 09 :39; Start 08/02/19 at 09:00 Furosemide (Lasix) 40 mg DAILY PO Last administered on 08/03/19at 09:39; Start 08/02/19 at 09:00 Non-Formulary Medication (Folic Acid ) 5 mg DAILY PO ; Start 08/02/19 at 09:00; Stop 08/02/19 at 08:55; Status DC Gabapentin (Neurontin) 600 mg TID PO Last administered on 08/03/19at 20:28; Start 08/02/19 at 09:00 Spironolactone (Aldactone) 100 mg DAILY PO Last administered on 08/03/19at 09:38; Start 08/02/19 at 09:00 Potassium Chloride (Klor-Con) 40 meq Q2H PO Last administered on 08/02/19at 13:04; Start 08/02/19 at 08:00; Stop 08/02/19 at 12:01; Status DC Folic Acid (Folic Acid) 1 mg DAILY PO Last administered on 08/03/19at 09:39; Start 08/02/19 at 09:00 Artificial Tears (Artificial Tears) 1 drop PRN Q15MIN PRN OU DRY EYE Last ad ministered on 08/02/19at 16:14; Start 08/02/19 at 13:15 Morphine Sulfate (Morphine Sulfate) 2 mg PRN Q2HR PRN IV PAIN Last administered on 08/03/19at 20:28; Start 08/02/19 at 13:15 Active Scripts Active Reported Gabapentin 600 Mg Tablet 600 Mg PO TID Children's Aspirin (Aspirin) 81 Mg Tab.chew 1 Tab PO DAILY 30 Days Folic Acid 0.8 Mg Capsule 5 Mg PO DAILY 30 Days Furosemide 40 Mg Tablet 1 Tab PO DAILY Spironolactone 100 Mg Tablet 1 Tab PO DAILY Vitals/I & O Vital Sign - Last 24 Hours 08/03/19 08/03/19 08/03/19 08/03/19 07:52 08:09 09:41 10:11 Resp 18 Pulse Ox 97 97 97 O2 Delivery Room Air Room Air Room Air Room Air 08/03/19 08/03/19 08/03/19 08/03/19 10:55 15:00 19:20 20:08 Temp 98.0 98.5 98.8 98.0 98.5 98.8 Pulse 106 106 108 Resp 18 B/P (MAP) 124/60 (81) 118/56 (76) 124/58 (80) Pulse Ox 99 100 96 O2 Delivery Room Air Room Air Room Air Room Air 08/03/19 08/03/19 08/03/19 08/04/19 20:28 21:23 22:55 02:57 Temp 98.8 98.2 98.8 98.2 Pulse 109 109 Resp 18 18 18 18 B/P (MAP) 143/71 (95) 118/56 (76) Pulse Ox 96 96 99 97 O2 Delivery Room Air Room Air Room Air Room Air Intake and Output 08/03/19 08/03/19 08/04/19 15:00 23:00 07:00 Intake Total 350 ml 600 ml Output Total 400 ml Balance 350 ml 200 ml KENNEDY MASCORRO MD Aug 04, 2019 07:50
[2019-08-04] MEDS: ASPIRIN CHEWABLE 81 MG TABLET. PO SCH (08:47)
[2019-08-04] MEDS: FUROSEMIDE 40 MG TABLET. PO SCH (08:48)
[2019-08-04] MEDS: SPIRONOLACTONE 25 MG TABLET PO SCH (08:48)
[2019-08-04] MEDS: FOLIC ACID 1 MG TABLET. PO SCH (08:48)
[2019-08-04] MEDS: GABAPENTIN 300 MG CAPSULE. PO SCH ×3 (08:48→20:34)
[2019-08-04] MEDS: MORPHINE SULFATE 2 MG/ML VIAL. IV PRN ×3 (08:49→20:34)
--- NOTE | 2019-08-04 10:00 | CARD ---
MR#: [id number] Date of Study: 08/04/2019 Ordering Physician: KERRY BERNARD, Referring Physician: KERRY BERNARD, Tech: Aggie Thomas [facility] APPROVED REPORT EXAM: Two-dimensional and M-mode echocardiogram with Doppler and color Doppler. Other Information Quality : AverageHR: 106bpm Rhythm : TachycardiaTechnically limited study due to body habitus. INDICATION Shortness of Breath 2D DIMENSIONS RVDd2.9 (2.9-3.5cm)Left Atrium(2D)4.1 (1.6-4.0cm) IVSd1.1 (0.7-1.1cm)Aortic Root(2D)2.5 (2.0-3.7cm) LVDd4.8 (3.9-5.9cm)LVOT Diameter1.8 (1.8-2.4cm) PWd1.1 (0.7-1.1cm)LVDs2.8 (2.5-4.0cm) FS (%) 41.7 %SV78.2 ml LVEF(%)70.0 (>50%) M-Mode DIMENSIONS Left Atrium(MM)4.12 (2.5-4.0cm)Aortic Root2.71 (2.2-3.7cm) Aortic Valve AoV Peak Braden.167.1cm/sAoV VTI26.8cm AO Peak GR.11.2mmHgLVOT Peak Braden.125.4cm/s AO Mean GR.5mmHgAVA (VMAX)1.92cm2 IVANNA (VTI)1.90cm2 Mitral Valve MV E Gyfbpueu299.4cm/sMV DECEL [id number] MV A Krjfqnrx273.5cm/sE/A Ratio1.1 Pulmonary Valve PV Peak Xtwsknzw156.2cm/s Tricuspid Valve TR P. Nsvakhpb554ih/sRAP IMNODLPC3mfRr TR Peak Gr.90wcGzYCJZ31dsMr LEFT VENTRICLE The left ventricle is normal size. There is mild concentric left ventricular hypertrophy. The left ve ntricular systolic function is normal. The Ejection Fraction is 65-70%. There is normal LV segmental wall motion. Transmitral Doppler flow pattern is Grade II-pseudonormal filling dynamics. RIGHT VENTRICLE The right ventricle is normal size. There is normal right ventricular wall thickness. The right ventr icular systolic function is normal. ATRIA The left atrium is mildly dilated. The right atrium size is normal. The interatrial septum is intact with no evidence for an atrial septal defect or patent foramen ovale as noted on 2-D or Doppler imagi ng. AORTIC VALVE The aortic valve is normal in structure and function. The aortic valve is trileaflet. Doppler and Col or Flow revealed no significant aortic regurgitation. There is no significant aortic valvular stenosi s. MITRAL VALVE The mitral valve is mildly thickened. There is no evidence of mitral valve prolapse. There is no mitr al valve stenosis. Doppler and Color-flow revealed mild mitral regurgitation. TRICUSPID VALVE The tricuspid valve is normal in structure and function. Doppler and Color Flow revealed trace tricus pid regurgitation. There is mild pulmonary hypertension. The PA pressure was estimated at 45 mmHg. Th ere is no tricuspid valve prolapse or vegetation. There is no tricuspid valve stenosis. PULMONIC VALVE The pulmonic valve is not well visualized. GREAT VESSELS The aortic root is normal in size. The ascending aorta is normal in size. The IVC is normal in size a nd collapses >50% with inspiration. PERICARDIAL EFFUSION There is no evidence of significant pericardial effusion. Critical Notification Critical Value: No <Conclusion> The left ventricular systolic function is normal. The Ejection Fraction is 65-70%. There is normal LV segmental wall motion. Mild mitral regurgitation. Trace tricuspid regurgitation. The PA pressure was estimated at 45 mmHg. There is no evidence of significant pericardial effusion. Signed by : John Magdaleno, Electronically Approved : 08/04/2019 09:59:34
[2019-08-04 10:04] LABS: PROTHROMBIN TIME PATIENT 20.3 SEC (11.7-14.0)
--- NOTE | 2019-08-04 12:01 | PDOC ---
Subjective: Subjective: Abdomen feels tight and uncomfortable, breathing is okay. This all started because he forgot he shouldn't eat salt and had a burger and fries. Quit drinking years ago. Legs still swollen. Takes water pills at home. Objective: Vital Signs: Vital Signs Date Time Temp Pulse Resp B/P (MAP) Pulse Ox O2 Delivery O2 Flow Rate FiO2 08/04/19 11:00 97.7 103 20 123/56 (78) 97 Room Air 97.7 Labs: Laboratory Tests Test 08/04/19 04:25 08/04/19 09:10 Sodium Level 131 mmol/L Potassium Level 4.0 mmol/L Chloride Level 97 mmol/L Carbon Dioxide Level 26 mmol/L Anion Gap 8 Blood Urea Nitrogen 8 mg/dL Creatinine 1.3 mg/dL Estimated GFR (Cockcroft-Gault) 69.9 BUN/Creatinine Ratio 6 Glucose Level 122 mg/dL Calcium Level 7.6 mg/dL Total Bilirubin 2.3 mg/dL Aspartate Amino Transf (AST/SGOT) 79 U/L Alanine Aminotransferase (ALT/SGPT) 26 U/L Alkaline Phosphatase 163 U/L Total Protein 7.4 g/dL Albumin 1.9 g/dL Albumin/Globulin Ratio 0.3 Prothrombin Time 20.3 SEC Prothromb Time International Ratio 1.8 Imaging: CXR 08/01 IMPRESSION: No acute pulmonary finding. CT A/P 08/01 IMPRESSION: 1. No acute abnormality of abdomen or pelvis. Normal appendix. 2. Findings consistent with cirrhosis. There is a small amount of ascites. 3. Tiny hypodensity in the right lobe liver measuring about 5 mm, nonspecific. Correlate with alpha-fetoprotein values. Follow-up biphasic CT or MRI in 6 months to ensure stability. 4. Small ventral hernias containing ascitic fluid. Abd US 08/03 IMPRESSION: Small amount of ascites. Echocardiogram 08/04 <Conclusion> The left ventricular systolic function is normal. The Ejection Fraction is 65-70%. There is normal LV segmental wall motion. Mild mitral regurgitation. Trace tricuspid regurgitation. The PA pressure was estimated at 45 mmHg. There is no evidence of significant pericardial effusion. PE: GEN: NAD - sitting on edge of bed LUNGS: clear anteriorly HEART: mildly tachycardic ABD: obese, distended EXTREMITY: BLE edema NEURO/PSYCH: A & O 3 A/P: H/o alcoholic cirrhosis and ascites requiring paracentesis Anemia (on ASA here), thrombocytopenia, coagulopathy (better), abnormal LFTs, elevated AFP Right hepatic lesion, ascites Hypokalemia (resolved), hyponatremia, dyspnea, BLE edema -- D/w nurse - says he normally goes to [facility] [place], plans for paracentesis today. I ordered fluid studies. Check viral hepatitis panel and anemia parameters for completeness. Right hepatic lesion on CT, US unhelpful re: this (ordered to check ascites), and AFP elevated - needs additional imaging at [place]. Hemodynamically unstable?: No Is patient in severe pain?: No Is NPO status required?: No REED FARIAS Aug 04, 2019 12:01
--- NOTE | 2019-08-04 12:11 | EKG ---
[facility] [address] [place] [address] Test Date: 2019-08-01 Test Time: 12:07:08 Pat Name: KERRY GILMORE Department: Room: Gender: M Supervisor Shuttle Preparation: : 1965 Requested By: ASHA MOTLEY Order Number: [id number] Reading MD: Measurements Intervals Mckinney Rate: P: DC: QRS: QRSD: T: QT: QTc: Interpretive Statements
--- NOTE | 2019-08-04 12:28 | PDOC ---
CARDIO Progress Notes Date and Time Date of Service 08/04/19 Time of Evaluation 1220 Subjective Subjective: Other (belly and legs still swollen) Vitals Vitals Vital Signs Date Time Temp Pulse Resp B/P (MAP) Pulse Ox O2 Delivery O2 Flow Rate FiO2 08/04/19 11:00 97.7 103 20 123/56 (78) 97 Room Air 97.7 Weight Weight [ ] Input and Output Intake and Output Intake and Output 08/04/19 06:59 Intake Total 950 ml Output Total 400 ml Balance 550 ml Intake Oral 950 ml Output Urine Total 400 ml # Voids 2 Laboratory Labs Laboratory Tests Test 08/04/19 04:25 08/04/19 09:10 Sodium Level 131 mmol/L (136-145) Potassium Level 4.0 mmol/L (3.5-5.1) Chloride Level 97 mmol/L (98-107) Carbon Dioxide Level 26 mmol/L (21-32) Anion Gap 8 (6-14) Blood Urea Nitrogen 8 mg/dL (8-26) Creatinine 1.3 mg/dL (0.7-1.3) Estimated GFR (Cockcroft-Gault) 69.9 BUN/Creatinine Ratio 6 (6-20) Glucose Level 122 mg/dL (70-99) Calcium Level 7.6 mg/dL (8.5-10.1) Iron Level 57 ug/dL (65-175) Total Iron Binding Capacity 159 ug/dL (250-450) Iron Saturation 36 % (15-34) Total Bilirubin 2.3 mg/dL (0.2-1.0) Aspartate Amino Transf (AST/SGOT) 79 U/L (15-37) Alanine Aminotransferase (ALT/SGPT) 26 U/L (16-63) Alkaline Phosphatase 163 U/L (46-116) Total Protein 7.4 g/dL (6.4-8.2) Albumin 1.9 g/dL (3.4-5.0) Albumin/Globulin Ratio 0.3 (1.0-1.7) Prothrombin Time 20.3 SEC (11.7-14.0) Prothromb Time International Ratio 1.8 (0.8-1.1) Physical Exam HEENT: Neck Supple W Full Motion Chest: Symmetric LUNGS: Clear to Auscultation, Other (diminished ) Heart: S1S2, murmurs (2/6 systolic murmur) Abdomen: Other (significant ascites ) Extremities: Other (2+ bilateral LE edema ) Neurology: alert, oriented, follow commands Assessment Assessment 1. Alcoholic cirrhosis with ascites. s/p previous paracentesis. 2. Dyspnea most probably secondary to significant ascites. NT Pro BNP WNL. Echo showed preserved LV systolic function 3. Accelerated hypertension; now controlled 4. Coagulopathy secondary to above 5. Chest pain, atypical. AMI ruled out. EKG without acute changes. Echo without WMA 6. Hypokalemia ; replaced Recommendations Paracentesis planned Will give dose of IV Lasix today. SHARLA SKELTON APRN Aug 04, 2019 12:28
--- NOTE | 2019-08-04 14:27 | NUR ---
SS following for discharge planning. SS reviewed pt chart. Pt is from home and is currently on room air. 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 Pt plans to return to home at discharge. SS will continue to follow for discharge planning.
--- NOTE | 2019-08-04 15:43 | PDOC ---
PROGRESS NOTES Chief Complaint Chief Complaint Dyspnea secondary to ascites Right sided to left sided CHEST pain TRansaminitis LIver cirrhosis Obesity HX parcentesis 1 yr ago - [facility] HYPOKALEM[facility]< critical RAMESH VMN - creat 1.,4 Thrombocytopenia in a cirrhotic - monitor Accelerated hTN - add prn , resumed home medications Hyponatremia , mild (133) in a cirrhotic PLAn: appreciate cards and GI consult IR consulted for paracentesis today diuretics given edema of lower extremities. AFP levels noted FULL CODE Other supportive meds ordered History of Present Illness History of Present Illness No new complaints, no abdominal pain it is more a sensation of fullness, today much more comfortable compared to yesterday despite diuretic therapy. Reassurance has been provided paracentesis planned for later in the day Vitals Vitals Vital Signs Date Time Temp Pulse Resp B/P (MAP) Pulse Ox O2 Delivery O2 Flow Rate FiO2 08/04/19 15:00 97.2 100 20 161/77 (105) 99 Room Air 97.2 Physical Exam General: mild distress Heart: Other (rate of 100) Abdomen: Normal bowel sounds Extremities: No clubbing, No cyanosis, No edema, Normal pulses, No tenderness/swelling Skin: No rashes, No breakdown, No significant lesion Labs LABS Laboratory Tests Test 08/04/19 04:25 08/04/19 09:10 Sodium Level 131 mmol/L (136-145) Potassium Level 4.0 mmol/L (3.5-5.1) Chloride Level 97 mmol/L (98-107) Carbon Dioxide Level 26 mmol/L (21-32) Anion Gap 8 (6-14) Blood Urea Nitrogen 8 mg/dL (8-26) Creatinine 1.3 mg/dL (0.7-1.3) Estimated GFR (Cockcroft-Gault) 69.9 BUN/Creatinine Ratio 6 (6-20) Glucose Level 122 mg/dL (70-99) Calcium Level 7.6 mg/dL (8.5-10.1) Iron Level 57 ug/dL (65-175) Total Iron Binding Capacity 159 ug/dL (250-450) Iron Saturation 36 % (15-34) Total Bilirubin 2.3 mg/dL (0.2-1.0) Aspartate Amino Transf (AST/SGOT) 79 U/L (15-37) Alanine Aminotransferase (ALT/SGPT) 26 U/L (16-63) Alkaline Phosphatase 163 U/L (46-116) Total Protein 7.4 g/dL (6.4-8.2) Albumin 1.9 g/dL (3.4-5.0) Albumin/Globulin Ratio 0.3 (1.0-1.7) Vitamin B12 Level 1879 pg/mL (247-911) Hepatitis A IgM Antibody Nonreactive (Nonreactive) Hepatitis B Surface Antigen Nonreactive (Nonreactive) Hepatitis B Core IgM Antibody Nonreactive (Nonreactive) Hepatitis C IgG Antibody Nonreactive (Nonreactive) Prothrombin Time 20.3 SEC (11.7-14.0) Prothromb Time International Ratio 1.8 (0.8-1.1) Review of Systems Review of Systems 10 point review of system is negative except as noted in the history of present illness Assessment and Plan Assessmemt and Plan Problems Medical Problems: (1) Ascites Status: Acute (2) Chest pain Status: Acute (3) Shortness of breath Status: Acute Comment Review of Relevant I have reviewed the following items faraz (where applicable) has been applied. Labs Laboratory Tests Test 08/03/19 04:10 08/04/19 04:25 08/04/19 09:10 White Blood Count 6.3 x10^3/uL (4.0-11.0) Red Blood Count 2.34 x10^6/uL (4.30-5.70) Hemoglobin 7.7 g/dL (13.0-17.5) Hematocrit 22.7 % (39.0-53.0) Mean Corpuscular Volume 97 fL (79-100) Mean Corpuscular Hemoglobin 33 pg (25-35) Mean Corpuscular Hemoglobin Concent 34 g/dL (31-37) Red Cell Distribution Width 17.9 % (11.5-14.5) Platelet Count 87 x10^3/uL (140-400) Neutrophils (%) (Auto) 63 % (31-73) Lymphocytes (%) (Auto) 14 % (24-48) Monocytes (%) (Auto) 19 % (0-9) Eosinophils (%) (Auto) 3 % (0-3) Basophils (%) (Auto) 1 % (0-3) Neutrophils # (Auto) 4.0 x10^3/uL (1.8-7.7) Lymphocytes # (Auto) 0.9 x10^3/uL (1.0-4.8) Monocytes # (Auto) 1.2 x10^3/uL (0.0-1.1) Eosinophils # (Auto) 0.2 x10^3/uL (0.0-0.7) Basophils # (Auto) 0.1 x10^3/uL (0.0-0.2) Sodium Level 132 mmol/L (136-145) 131 mmol/L (136-145) Potassium Level 3.8 mmol/L (3.5-5.1) 4.0 mmol/L (3.5-5.1) Chloride Level 96 mmol/L (98-107) 97 mmol/L (98-107) Carbon Dioxide Level 27 mmol/L (21-32) 26 mmol/L (21-32) Anion Gap 9 (6-14) 8 (6-14) Blood Urea Nitrogen 7 mg/dL (8-26) 8 mg/dL (8-26) Creatinine 1.3 mg/dL (0.7-1.3) 1.3 mg/dL (0.7-1.3) Estimated GFR (Cockcroft-Gault) 69.9 69.9 Glucose Level 114 mg/dL (70-99) 122 mg/dL (70-99) Calcium Level 7.5 mg/dL (8.5-10.1) 7.6 mg/dL (8.5-10.1) Troponin I Quantitative < 0.017 ng/mL (0.000-0.055) BUN/Creatinine Ratio 6 (6-20) Iron Level 57 ug/dL (65-175) Total Iron Binding Capacity 159 ug/dL (250-450) Iron Saturation 36 % (15-34) Total Bilirubin 2.3 mg/dL (0.2-1.0) Aspartate Amino Transf (AST/SGOT) 79 U/L (15-37) Alanine Aminotransferase (ALT/SGPT) 26 U/L (16-63) Alkaline Phosphatase 163 U/L (46-116) Total Protein 7.4 g/dL (6.4-8.2) Albumin 1.9 g/dL (3.4-5.0) Albumin/Globulin Ratio 0.3 (1.0-1.7) Vitamin B12 Level 1879 pg/mL (247-911) Hepatitis A IgM Antibody Nonreactive (Nonreactive) Hepatitis B Surface Antigen Nonreactive (Nonreactive) Hepatitis B Core IgM Antibody Nonreactive (Nonreactive) Hepatitis C IgG Antibody Nonreactive (Nonreactive) Prothrombin Time 20.3 SEC (11.7-14.0) Prothromb Time International Ratio 1.8 (0.8-1.1) Laboratory Tests Test 08/04/19 04:25 08/04/19 09:10 Sodium Level 131 mmol/L (136-145) Potassium Level 4.0 mmol/L (3.5-5.1) Chloride Level 97 mmol/L (98-107) Carbon Dioxide Level 26 mmol/L (21-32) Anion Gap 8 (6-14) Blood Urea Nitrogen 8 mg/dL (8-26) Creatinine 1.3 mg/dL (0.7-1.3) Estimated GFR (Cockcroft-Gault) 69.9 BUN/Creatinine Ratio 6 (6-20) Glucose Level 122 mg/dL (70-99) Calcium Level 7.6 mg/dL (8.5-10.1) Iron Level 57 ug/dL (65-175) Total Iron Binding Capacity 159 ug/dL (250-450) Iron Saturation 36 % (15-34) Total Bilirubin 2.3 mg/dL (0.2-1.0) Aspartate Amino Transf (AST/SGOT) 79 U/L (15-37) Alanine Aminotransferase (ALT/SGPT) 26 U/L (16-63) Alkaline Phosphatase 163 U/L (46-116) Total Protein 7.4 g/dL (6.4-8.2) Albumin 1.9 g/dL (3.4-5.0) Albumin/Globulin Ratio 0.3 (1.0-1.7) Vitamin B12 Level 1879 pg/mL (521-911) Hepatitis A IgM Antibody Nonreactive (Nonreactive) Hepatitis B Surface Antigen Nonreactive (Nonreactive) Hepatitis B Core IgM Antibody Nonreactive (Nonreactive) Hepatitis C IgG Antibody Nonreactive (Nonreactive) Prothrombin Time 20.3 SEC (11.7-14.0) Prothromb Time International Ratio 1.8 (0.8-1.1) Medications Current Medications Iohexol (Omnipaque 300 Mg/ml) 75 ml 1X ONCE IV Last administered on 08/01/19at 13:27; Start 08/01/19 at 13:15; Stop 08/01/19 at 13:16; Status DC Info (CONTRAST GIVEN -- Rx MONITORING) 1 each PRN DAILY PRN MC SEE COMMENTS; Start 08/01/19 at 13:30; Stop 08/03/19 at 13:29; Status DC Potassium Chloride (Klor-Con) 40 meq 1X ONCE PO Last administered on 08/01/19at 14:01; Start 08/01/19 at 13:30; Stop 08/02/19 at 08:54; Status DC Ondansetron HCl (Zofran) 4 mg 1X ONCE IVP Last administered on 08/01/19at 14:01; Start 08/01/19 at 13:30; Stop 08/01/19 at 13:31; Status DC Ondansetron HCl (Zofran) 4 mg PRN Q8HRS PRN IV NAUSEA/VOMITING; Start 08/01/19 at 14:15; Stop 08/02/19 at 14:14; Status DC Fentanyl Citrate (Fentanyl 2ml Vial) 50 mcg PRN Q1HR PRN IV PAIN; Start 08/01/19 at 14:15; Stop 08/02/19 at 14:14; Status DC Albuterol Sulfate (Ventolin Neb Soln) 2.5 mg PRN Q4HRS PRN NEB SHORTNESS OF BREATH; Start 08/01/19 at 15:15 Albuterol/ Ipratropium (Duoneb) 3 ml RTQID NEB Last administered on 08/03/19at 08:08; Start 08/01/19 at 16:00; Stop 08/03/19 at 15:40; Status DC Clonidine HCl (Catapres) 0.1 mg PRN Q1HR PRN PO HYPERTENSION; Start 08/01/19 at 15:15 Calcium Carbonate/ Glycine (Tums) 500 mg PRN AFTMEALHC PRN PO INDIGESTION; Start 08/01/19 at 15:15 Magnesium Sulfate 50 ml @ 25 mls/hr 1X ONCE IV Last administered on 08/01/19at 18:22; Start 08/01/19 at 17:45; Stop 08/01/19 at 19:44; Status DC Potassium Chloride/Water 100 ml @ 100 mls/hr Q1H IV Last administered on 08/02/19at 06:15; Start 08/02/19 at 06:00; Stop 08/02/19 at 08:54; Status DC Potassium Chloride/Water 100 ml @ 100 mls/hr Q1H IV ; Start 08/02/19 at 10:00; Stop 08/02/19 at 08:54; Status DC Aspirin (Children'S Aspirin) 81 mg DAILY PO Last administered on 08/04/19at 08:47; Start 08/02/19 at 09:00 Furosemide (Lasix) 40 mg DAILY PO Last administered on 08/04/19at 08:48; Start 08/02/19 at 09:00 Non-Formulary Medication (Folic Acid ) 5 mg DAILY PO ; Start 08/02/19 at 09:00; Stop 08/02/19 at 08:55; Status DC Gabapentin (Neurontin) 600 mg TID PO Last administered on 08/04/19at 13:21; Start 08/02/19 at 09:00 Spironolactone (Aldactone) 100 mg DAILY PO Last administered on 08/04/19at 08:48; Start 08/02/19 at 09:00 Potassium Chloride (Klor-Con) 40 meq Q2H PO Last administered on 08/02/19at 13:04; Start 08/02/19 at 08:00; Stop 08/02/19 at 12:01; Status DC Folic Acid (Folic Acid) 1 mg DAILY PO Last administered on 08/04/19at 08:48; Start 08/02/19 at 09:00 Artificial Tears (Artificial Tears) 1 drop PRN Q15MIN PRN OU DRY EYE Last administered on 08/02/19at 16:14; Start 08/02/19 at 13:15 Morphine Sulfate (Morphine Sulfate) 2 mg PRN Q2HR PRN IV PAIN Last administered on 08/04/19at 13:21; Start 08/02/19 at 13:15 Furosemide (Lasix) 40 mg 1X ONCE IVP ; Start 08/04/19 at 15:45; Stop 08/04/19 at 15:46 Active Scripts Active Reported Gabapentin 600 Mg Tablet 600 Mg PO TID Children's Aspirin (Aspirin) 81 Mg Tab.chew 1 Tab PO DAILY 30 Days Folic Acid 0.8 Mg Capsule 5 Mg PO DAILY 30 Days Furosemide 40 Mg Tablet 1 Tab PO DAILY Spironolactone 100 Mg Tablet 1 Tab PO DAILY Vitals/I & O Vital Sign - Last 24 Hours 08/03/19 08/03/19 08/03/19 08/03/19 19:20 20:08 20:28 21:23 Temp 98.8 98.8 Pulse 108 Resp 18 18 18 B/P (MAP) 124/58 (80) Pulse Ox 96 96 96 O2 Delivery Room Air Room Air Room Air Room Air 08/03/19 08/04/19 08/04/19 08/04/19 22:55 02:57 07:00 08:00 Temp 98.8 98.2 98.0 98.8 98.2 98.0 Pulse 109 109 108 Resp 18 18 20 B/P (MAP) 143/71 (95) 118/56 (76) 121/58 (79) Pulse Ox 99 97 96 O2 Delivery Room Air Room Air Room Air Room Air 08/04/19 08/04/19 08/04/19 08/04/19 08:49 09:19 11:00 13:21 Temp 97.7 97.7 Pulse 103 Resp 16 20 B/P (MAP) 123/56 (78) Pulse Ox 96 96 97 97 O2 Delivery Room Air Room Air Room Air Room Air 08/04/19 08/04/19 13:52 15:00 Temp 97.2 97.2 Pulse 100 Resp 20 B/P (MAP) 161/77 (105) Pulse Ox 97 99 O2 Delivery Room Air Room Air Intake and Output 08/03/19 08/03/19 08/04/19 14:59 22:59 06:59 Intake Total 350 ml 600 ml Output Total 400 ml Balance 350 ml 200 ml Hemodynamically unstable?: No Is patient in severe pain?: No Is NPO status required?: No KENNEDY MASCORRO MD Aug 04, 2019 15:43
[2019-08-04] MEDS ORDERED: FUROSEMIDE 40 MG/4 ML VIAL. IVP ONE (15:45)
[2019-08-05] MEDS: MORPHINE SULFATE 2 MG/ML VIAL. IV PRN (00:04)
[2019-08-05 03:40] VITALS: BP 139/61
[2019-08-05 07:00] VITALS: BP 152/68
[2019-08-05] MEDS ORDERED: MORPHINE IR 15 MG TABLET PO PRN (07:45)
[2019-08-05] MEDS: SPIRONOLACTONE 25 MG TABLET PO SCH (08:25)
[2019-08-05] MEDS: ASPIRIN CHEWABLE 81 MG TABLET. PO SCH (08:25)
[2019-08-05] MEDS: GABAPENTIN 300 MG CAPSULE. PO SCH (08:25)
[2019-08-05] MEDS: FUROSEMIDE 40 MG TABLET. PO SCH (08:26)
[2019-08-05] MEDS: FOLIC ACID 1 MG TABLET. PO SCH (08:26)
[2019-08-05] MEDS ORDERED: TRAM-48 PO (09:28)
--- NOTE | 2019-08-05 09:40 | PDOC3 ---
Discharge Summary Visit Information Date of Admission: Aug 01, 2019 Date of Discharge: Aug 05, 2019 Admitting Diagnosis: Ascites Final Diagnosis Problems Medical Problems: (1) Ascites Status: Acute (2) Chest pain Status: Acute (3) Shortness of breath Status: Acute Brief Hospital Course Allergies Allergies Coded Allergies Type Severity Reaction Last Updated Verified No Known Drug Allergies 08/01/19 No Vital Signs Vital Signs Date Time Temp Pulse Resp B/P (MAP) Pulse Ox O2 Delivery O2 Flow Rate FiO2 08/05/19 08:26 93 Room Air 08/05/19 07:00 97.9 103 20 152/68 (96) 97.9 Lab Results Laboratory Tests Test 08/04/19 04:25 08/04/19 09:10 Sodium Level 131 mmol/L (136-145) Potassium Level 4.0 mmol/L (3.5-5.1) Chloride Level 97 mmol/L (98-107) Carbon Dioxide Level 26 mmol/L (21-32) Anion Gap 8 (6-14) Blood Urea Nitrogen 8 mg/dL (8-26) Creatinine 1.3 mg/dL (0.7-1.3) Estimated GFR (Cockcroft-Gault) 69.9 BUN/Creatinine Ratio 6 (6-20) Glucose Level 122 mg/dL (70-99) Calcium Level 7.6 mg/dL (8.5-10.1) Iron Level 57 ug/dL (65-175) Total Iron Binding Capacity 159 ug/dL (250-450) Iron Saturation 36 % (15-34) Total Bilirubin 2.3 mg/dL (0.2-1.0) Aspartate Amino Transf (AST/SGOT) 79 U/L (15-37) Alanine Aminotransferase (ALT/SGPT) 26 U/L (16-63) Alkaline Phosphatase 163 U/L (46-116) Total Protein 7.4 g/dL (6.4-8.2) Albumin 1.9 g/dL (3.4-5.0) Albumin/Globulin Ratio 0.3 (1.0-1.7) Vitamin B12 Level 1879 pg/mL (247-911) Hepatitis A IgM Antibody Nonreactive (Nonreactive) Hepatitis B Surface Antigen Nonreactive (Nonreactive) Hepatitis B Core IgM Antibody Nonreactive (Nonreactive) Hepatitis C IgG Antibody Nonreactive (Nonreactive) Prothrombin Time 20.3 SEC (11.7-14.0) Prothromb Time International Ratio 1.8 (0.8-1.1) Brief Hospital Course History and Physical Date of Admission Date of Admission DATE: 08/01/19 TIME: 15:03 Identification/Chief Complaint Chief Complaint cant breathe Source Source: Caregiver, Chart review, Patient History of Present Illness History of Present Illness 53 obese AA male, he has hx cirrhosis,a nd quit drinking since the dx, needed a paracentesis last yr, HE has SOA, cant sit up bec has SOA, chets pains too RT to left side, HIS LFTS are moderately elevated with elev TB and alk phosphatase, HSi CXR is normal ,BP high side bec of restlessness, HE is sinus tacycardic. K low, getting 40 PO x 1, CLaims on lasix, aldactone at home but doesnt know the dose or frequency, Na 133, platelets low, 100s, creat 1,4\HE does not smoke CT:IMPRESSION: 1. No acute abnormality of abdomen or pelvis. Normal appendix. 2. Findings consistent with cirrhosis. There is a small amount of ascites. 3. Tiny hypodensity in the right lobe liver measuring about 5 mm, nonspecific. Correlate with alpha-fetoprotein values. Follow-up biphasic CT or MRI in 6 months to ensure stability. 4. Small ventral hernias containing ascitic fluid. Mr. Haider is a 53 old male who presented with shortness of air and abodminal discomfort, he was evaluated in the ER and due to his significant respiratory distress he was admitted for furnter evaluation and treatment. He was found to have and elevated AFP in conjunction with a suspicious structure on his imaging studies. HE had cardiac evaluation with ECHO which showed preserved ejection fraction and no wall motion abnormalities. Patient was taken to the IR suite where he had a paracentesis done. [facility] and I have encouraged him to dfollowu with his primary care physician, He certainly did not understand the improtance of salt restriction and fluid restriction in order to avoid decompensation that brought him into the hospital. consultants and I gave him counseling regarding dietary changes and the importance of close follow up due to his findings during this hospital visit. All concerns were addressed to the best of my abilities. GI recommendations as follow: H/o alcoholic cirrhosis and ascites requiring paracentesis Anemia (on ASA here), thrombocytopenia, coagulopathy (better), abnormal LFTs, elevated AFP Right hepatic lesion, ascites Hypokalemia (resolved), hyponatremia, dyspnea, BLE edema -- D/w nurse - says he normally goes to [facility] in [place], plans for paracentesis today. I ordered fluid studies. Check viral hepatitis panel and anemia parameters for completeness. Right hepatic lesion on CT, US unhelpful re: this (ordered to check ascites), and AFP elevated - needs additional imaging at [facility] in [place]. Hemodynamically unstable?: No Is patient in severe pain?: No Is NPO status required?: No REED FARIAS Aug 04, 2019 12:01 Addendum: NARCISA WEBB MD on 08/04/19 @ 17:38 As above. Liver mass likely HCC with increased AFP, MRI to confirm recommended at [facility] with care clinic MD. transplant evaluation after that as well.Await paracentesis. CPM Patient physical exam for today Lungs good inspiratory effort with clear lung joyner CVS s1s2 regular rate and rhythm no murmurs. Discharge Information Condition at Discharge: Improved Follow Up: Weeks Disposition/Orders: D/C to Home Scheduled Aspirin (Children's Aspirin) 81 Mg Tab.chew, 1 TAB PO DAILY for blood thinner for 30 Days, #30 Ref 0 (Reported) Entered as Reported by: Jarred Montano on 08/02/19145 Last Action: Continued on 08/02/19749 by KENNEDY MASCORRO MD Folic Acid (Folic Acid) 0.8 Mg Capsule, 5 MG PO DAILY for vitamin for 30 Days, #188 Ref 0 (Reported) Entered as Reported by: Jarred Montano on 08/02/19145 Last Action: Converted on 08/02/19749 by KENNEDY MASCORRO MD Furosemide (Furosemide) 40 Mg Tablet, 1 TAB PO DAILY for diuretic, #30 Ref 5 (Reported) Entered as Reported by: Jarred Montano on 08/02/19145 Last Action: Continued on 08/02/19749 by KENNEDY MASCORRO MD Gabapentin (Gabapentin) 600 Mg Tablet, 600 MG PO TID for NEUROGENIC PAIN, (Reported) Entered as Reported by: Jarred Montano on 08/02/19145 Last Action: Converted on 08/02/19749 by KENNEDY MASCORRO MD Spironolactone (Spironolactone) 100 Mg Tablet, 1 TAB PO DAILY for diuretic, #30 Ref 11 (Reported) Entered as Reported by: Jarred Montano on 08/02/19 0146 Last Action: Converted on 08/02/19 0750 by KENNEDY MASCORRO MD Scheduled PRN Tramadol Hcl (Ultram) 50 Mg Tablet, 1 TAB PO PRN TID PRN for pain MDD 3 Tablet(s) for 3 Days, #9 Ref 0 Prescribed by: KENNEDY MASCORRO MD on 08/05/19 0928 Hemodynamically unstable?: No Is patient in severe pain?: No Is NPO status required?: No KENNEDY MASCORRO MD Aug 05, 2019 09:40
--- NOTE | 2019-08-05 10:04 | NUR ---
Discharged patient to home. Discharge instructions given. PIV and heart monitor removed. Escorted patient to [facility] per wheelchair into a private vehicle.
--- NOTE | 2019-08-07 14:27 | RAD ---
Ultrasound-guided paracentesis 08/07/2019 12:24 PM Procedure: The risks and benefits of the procedure were discussed the patient. Informed consent was obtained. A timeout procedure was performed. Sonographic evaluation of the abdomen was performed demonstrating ascites . The right lower quadrant was prepped and draped using maximum sterile barrier technique. 1% lidocaine without epinephrine was administered for local anesthesia. Real-time ultrasonographic guidance was used in passing a 5 Japanese Yueh catheter into the fluid collection. 3 L of serous ascites was removed. The catheter was removed and pressure held to achieve hemostasis. A sterile dressing was applied. Impression: Successful ultrasound-guided paracentesis
== END 2019-08-05 10:10 | disposition home or self-care (01) | DRG 432 ==
LOC: ER 12:01 → 2 SOUTH 13:30
PROVIDERS: ADMIT Internal Medicine; ATTEND Internal Medicine
PROC: 0W9G3ZZ Drainage of Peritoneal Cavity, Percutaneous Approach (ICD-10-PCS; principal; 2019-08-05)
DX: K70.31 Alcoholic cirrhosis of liver with ascites (principal); N17.0 Acute kidney failure with tubular necrosis; E87.1 Hypo-osmolality and hyponatremia; Z68.41 Body mass index [BMI] 40.0-44.9, adult; R07.89 Other chest pain; D64.9 Anemia, unspecified; D69.59 Other secondary thrombocytopenia; E66.9 Obesity, unspecified; E87.6 Hypokalemia; I10 Essential (primary) hypertension; Z82.49 Family history of ischemic heart disease and other diseases of the circulatory system; D69.6 Thrombocytopenia, unspecified; Z79.899 Other long term (current) drug therapy
CPT/HCPCS: 36415; 49083; 71045; 74177; 76705; 80048; 80053; 80307; 81001; 82105; 82607; 83540; 83550; 83690; 83735; 83880; 84484; 85007; 85025; 85610; 86705; 86709; 86803; 87340; 93005; 93306; 94640; 94760; 96374; G0480; J1940; J2270; J2405; J3475; J3480; J7620; Q9967; 99285-25; G0378